=== PATIENT | male | born 1990 | race Two or more races ===

== ENCOUNTER 2021-01-16 11:01 | Outpatient (REF) | payer BC, SELFPAY | END 2021-01-16 11:02 | disposition home or self-care (01) | LOC: HO.LAB 11:01 | PROVIDERS: Visit Provider Internal Medicine | DX: Z20.822 Contact with and (suspected) exposure to COVID-19 (principal) | CPT/HCPCS: 36415; C9803; U0003; U0005 ==

== ENCOUNTER 2021-02-02 14:35 | Emergency (ER) | payer OTHER, SELFPAY ==
--- NOTE | ~2021-02-02 | XR_ITS ---
EXAMINATION: XR KNEE, LEFT CLINICAL INFORMATION: Knee pain from fall COMPARISON: None TECHNIQUE: Four views of the left knee. FINDINGS: There is no fracture or subluxation. Compartmental joint spaces are maintained. No joint effusion. The soft tissues are unremarkable. XR/XR knee LT 4V IMPRESSION: Normal left knee.
[2021-02-02 15:20] VITALS: RESP 16; TEMP 36.6; BMI 21.6
--- NOTE | 2021-02-02 16:28 | ED_ITS ---
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 He denies any other injury since. complaint: knee injury Onset (ago): day(s) Injury: Left: knee Type of Injury: blunt Place: work Severity: mild Severity scale (1-10): 3 Relieving factors: immobilization Exacerbating factors: palpation Context: fall and direct blow Other symptoms: none Related Data Previous Rx's Medication Instructions Recorded ibuprofen 800 mg PO Q8H PRN #14 tab 02/02/21 Allergies Allergy/AdvReac Type Severity Reaction Status Date / Time No Known Allergies Allergy Unverified 08/15/20 18:47 Review of Systems Review of Systems: Constitutional: No Weight loss, No Fever, No Chills, No Night Sweats, No Fatigue, No Malaise ENT/Mouth: No Hearing loss, No Ear Pain, No Nasal Congestion, No Sinus Pain, No Hoarseness, No sore throat, No Rhinorrhea, No Swallowing Difficulty Eyes: No Eye Pain, No Swelling, No Redness, No Foreign Body, No Discharge, No Vision Changes Cardiovascular: No Chest Pain, No SOB, No Dyspnea on Exertion, No Orthopnea, No Edema, No Palpitations Respiratory: No Cough, No Sputum, No Wheezing, No Dyspnea Gastrointestinal: No Nausea, No Vomiting, No Diarrhea, No Constipation, No abdominal Pain, No Hematochezia, No Melena Genitourinary: No Dysuria, No Urinary Frequency, No Hematuria, No Urinary Incontinence, No Urgency, No Flank Pain, No Urinary Flow Changes, No Hesitancy Musculoskeletal: No joint pain, No Myalgias, No Joint Swelling, left knee pain as noted per HPI Skin: No Skin Lesions, No rash Neuro: No Weakness, No Numbness, No Paresthesias, No Loss of Consciousness, No Dizziness, No Headache Psych: No Social Issues Heme/Lymph: No Bruising, No Bleeding,No Lymphadenopathy Endocrine: No Polyuria, No Polydipsia, No Temperature Intolerance Yes all other systems are reviewed and are negative [facility] Past Medical History Medical History (Updated 02/02/21 @ 16:38 by Mason Farnsworth NP) No known health problems Social History Social History Advance Directives: No Advance Directives Information Provided: No Physical Exam Vital Signs: Vital Signs: Last Vital Signs Temp 97.8 F 02/02/21 15:20 Resp 16 02/02/21 15:20 Body Mass Index 21.6 Reviewed Const: General: cooperative and healthy appearing; No acute distress or intoxicated appearing Nutritional Appearance: average body habitus Orientation/consciousness: patient oriented x3 HENMT: Head: Yes normal to inspection Ears: hearing grossly normal bilaterally Eyes: General: appearance normal, both eyes and all related structures Visual Hackett: normal visual hackett by confrontation Resp: Effort & Inspection: normal respiratory effort Cardio: Jugular venous distension: no JVD : General: Yes no CVA tenderness Back/Spine/Pelvis: Back: no CVA tenderness Skin: General skin exam: no rashes or lesions noted Neuro: General: patient oriented x3 Extrem: General: Yes normal to inspection Right upper extremity: normal to inspection Left upper extremity: normal to inspection Right lower extremity: normal to inspection and full ROM Left lower extremity: normal to inspection, full ROM and knee Details: tenderness Location: of the pre-patellar area and of the infrapatellar area Course Course Course Narrative: Strain versus contusion type injury to the left knee occurred at work. X-ray without acute osseous fracture Malcolm wrap, NSAID and follow-up with [facility] and [facility]. Discharge Plan Discharge Clinical Impression: Acute knee pain Qualifiers: Laterality: left Qualified Code(s): M25.562 - Pain in left knee Patient Disposition: Home, Self-Care Instructions: Knee Pain (ED) Additional Instructions: Rest, ice, elevate Ice wrap Ibuprofen for pain discomfort Follow-up as discussed with [facility] as well as orthopedic as needed Thank you Prescriptions: New ibuprofen 800 mg tablet 800 mg PO Q8H PRN (Reason: pain) Qty: 14 RF: 0 Referrals: Natalia Noble MD [Primary Care Provider] - 1 week Richard Anderson MD [Physician] - 1 week
== END 2021-02-02 16:49 | disposition home or self-care (01) ==
PROVIDERS: Emergency Provider Emergency Medicine; PCP Internal Medicine
DX: S89.92XA Unspecified injury of left lower leg, initial encounter (principal); M25.562 Pain in left knee; W01.0XXA Fall on same level from slipping, tripping and stumbling without subsequent striking against object, initial encounter; Y93.9 Activity, unspecified; Y92.9 Unspecified place or not applicable; Y99.0 Civilian activity done for income or pay; Z79.899 Other long term (current) drug therapy
CPT/HCPCS: 73564; 99283

== ENCOUNTER 2021-02-06 10:32 | Emergency (ER) | payer OTHER, SELFPAY ==
[2021-02-06 11:37] VITALS: BP 122/61; PULSE 77; RESP 16; TEMP 36.6; O2SAT 99; BMI 20.9
--- NOTE | 2021-02-06 12:10 | ED.LOWEXIN ---
HPI - Extremity Injury (Lower) General Chief Complaint: Extremity Injury, Lower Stated Complaint: leg knee inj Time Seen by Provider: 02/06/21 11:43 Source: patient Mode of arrival: ambulatory Limitations: language barrier (Panamanian-speaking) History of Present Illness HPI Narrative: 30-year-old male presenting to the ED with complaints of persistent left knee pain after he fell and tripped on something and felt like his knee twisted despite being seen here on 02/02/2021 and seen by [employer] part of his work yesterday reports he had 2 x-rays and they reported that there are no fractures and no other acute processes. They put him in a knee immobilizer and told him to follow-up with orthopedics. Patient reports he has a follow-up appointment tomorrow although Motrin is not helping with his pain. Denies any other symptoms complaints or concerns. complaint: knee injury Onset (ago): day(s) (On 02/02/2021) Place: work Severity: moderate Relieving factors: nothing Exacerbating factors: weight bearing, movement and palpation Context: fall Associated symptoms: swelling Other symptoms: none Treatments prior to arrival: other (Knee immobilizer) Related Data Previous Rx's Medication Instructions Recorded ibuprofen 800 mg PO Q8H PRN #14 tab 02/02/21 acetaminophen [Tylenol Extra 500 mg PO Q6H PRN #14 tab 02/06/21 Strength] ibuprofen 800 mg PO Q8H PRN #14 tab 02/06/21 oxycodone 5 mg PO BID PRN #14 tab 02/06/21 Allergies Allergy/AdvReac Type Severity Reaction Status Date / Time No Known Allergies Allergy Unverified 08/15/20 18:47 Review of Systems Review of Systems: Constitutional : No changes in activity, No lethargy, No recent prior head injury, No agitation, No increased fussiness ENT/Mouth : No Ear Pain, No Nasal discharge/drainage Eyes: No Eye Pain, No Swelling, No Redness, No Foreign Body, No Vision Changes Cardiovascular : No Chest Pain, No SOB Respiratory : No Cough Gastrointestinal : No Nausea, No Vomiting, No abdominal Pain Genitourinary : No Dysuria, No Urinary Frequency, No Urinary Incontinence, No Urgency, No Flank Pain Musculoskeletal : + joint pain, No neck stiffness, No back pain/injury Skin : No lacerations Neuro : No unsteady gait, No Paresthesias, No Loss of Consciousness, No altered mental status, No Headache Yes all other systems are reviewed and are negative [facility] Past Medical History Attestation statement: The following information was validated with the patient. Medical History No known health problems Social History Social History Advance Directives: No Advance Directives Information Provided: No Physical Exam Vital Signs: Vital Signs: Last Vital Signs Temp 98 F 02/06/21 11:37 Pulse 77 02/06/21 11:37 Resp 16 02/06/21 11:37 BP 122/61 02/06/21 11:37 Pulse Ox 99 02/06/21 11:37 Body Mass Index 20.9 vital signs have been reviewed as normal and appeared to be correct. Blood pressure normal. Heart rate normal. Respiration rate normal. Temperature normal. Oxygen saturation normal. Appearance: Alert. Oriented X3. No acute distress. Head: Normal external exam. Normocephalic. Atraumatic. Eyes: PERRLA. EOMI. Conjunctiva and sclera normal. Eyelids normal. ENT: Pharynx normal. Uvula midline. Moist mucous membranes. Neck: Normal inspection. Neck supple. FROM. No adenopathy. No meningeal signs. No neck mass noted. CVS: Normal heart rate and rhythm. Heart sound normal. Respiratory: No respiratory distress. Painless inspiration. Back: Full range of motion noted. Skin: Skin warm and dry. Normal skin color. Normal skin turgor. No rashes/lesions/lacerations noted. Extremities: To left knee patient has knee immobilizer in place we remove the knee immobilizer and patient has mild soft tissue swelling to the anterior medial aspect of the knee and tenderness to palpation to the anterior medial aspect of the knee and lateral lower aspect of the knee. Patient does have full range of motion no obvious laxity noted. No obvious deformities noted. No lower extremity edema. Otherwise all other Extremities exhibit normal range of motion and nontender. Neuro: Oriented X 3. No motor deficit. No sensory deficit. Reflexes normal. Course Course Course Narrative: 30-year-old male presenting to the ED after he had a work related injury a few days ago with persistent pain had 2 x-rays which were negative for any acute processes has to follow up with Orthopedics. Knee immobilizer in place. Requesting for something stronger for pain other than Motrin. Will DC home with some pain meds and crutches and instructions to follow up with [facility] and orthopedics as scheduled. Patient understands agrees with this plan. MDM - Extremity Injury (Lower) Medical Records Attestation: I reviewed the patient's medical records. Discharge Plan Discharge Clinical Impression: Left knee sprain Patient Disposition: Home, Self-Care Instructions: Knee Sprain (ED), Crutch Instructions (ED), Knee Immobilizer (ED) Prescriptions: New ibuprofen 800 mg tablet 800 mg PO Q8H PRN (Reason: pain) Qty: 14 RF: 0 acetaminophen [Tylenol Extra Strength] 500 mg tablet 500 mg PO Q6H PRN (Reason: pain) Qty: 14 RF: 0 oxycodone 5 mg tablet 5 mg PO BID PRN (Reason: pain) Qty: 14 RF: 0 No Action ibuprofen 800 mg tablet 800 mg PO Q8H PRN (Reason: pain) Qty: 14 RF: 0 Referrals: Richard Anderson MD [Physician] - 2 days (Call this week to make a follow-up appointment within the next 1-2 weeks) Stand Alone Forms: Work/School Release Print Language: Panamanian
--- NOTE | 2021-02-06 12:48 | PC.NURSE ---
PT HAS BRACE FROM HOME ON, NEUROVASC INTACT. PT STATES DID NOT WANT CRUTCHES. STATES I CAN WALK. DECLINED CRUTCHES.
== END 2021-02-06 12:52 | disposition home or self-care (01) ==
PROVIDERS: Emergency Provider Emergency Medicine Emergency Medical Services; PCP Internal Medicine
DX: S89.92XA Unspecified injury of left lower leg, initial encounter (principal); M79.605 Pain in left leg; X50.1XXA Overexertion from prolonged static or awkward postures, initial encounter; Y93.01 Activity, walking, marching and hiking; Y92.9 Unspecified place or not applicable; Y99.9 Unspecified external cause status; Z79.899 Other long term (current) drug therapy
CPT/HCPCS: 99283

== ENCOUNTER 2021-03-03 11:51 | Emergency (ER) | payer MEDICAID, SELFPAY ==
[2021-03-03 12:09] VITALS: BP 118/73; PULSE 88; RESP 18; TEMP 37; O2SAT 98; BMI 21.2
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
--- NOTE | 2021-03-03 12:51 | PC.NURSE ---
PT AMBULATORY INTO [facility] 4. PT AWAKE, ALERT AND ORIENTED X 3. SKIN WARM AND DRY. RESP UNLABORED. DENIES N/V. NEUROS INTACT. MOVING ALL EXTREMITIES WITHOUT DIFFICULTY. NO ACUTE DISTRESS, SITTING UP IN CHAIR. EVALUATED BY FATOU GARRETT. AWARE TO RETURN TO ED IF SYMPTOMS WORSEN. PLAN IS FOR DC HOME AND PT IS AGREEABLE.
== END 2021-03-03 12:54 | disposition home or self-care (01) ==
PROVIDERS: Emergency Provider Emergency Medicine; PCP Internal Medicine
DX: S39.012A Strain of muscle, fascia and tendon of lower back, initial encounter (principal); V43.52XA Car driver injured in collision with other type car in traffic accident, initial encounter; Y93.9 Activity, unspecified; Y92.410 Unspecified street and highway as the place of occurrence of the external cause; Y99.9 Unspecified external cause status; Z79.899 Other long term (current) drug therapy
CPT/HCPCS: 99283

== ENCOUNTER 2021-06-16 15:14 | Emergency (ER) | payer MEDICAID, SELFPAY ==
[2021-06-16 15:25] VITALS: BP 124/63; PULSE 86; RESP 19; TEMP 37.2; O2SAT 100; BMI 22.0
--- NOTE | 2021-06-16 16:29 | ED.ANIMALBIT ---
HPI - Animal Bite General Chief Complaint: Skin/Abscess/Foreign Body Stated Complaint: Cat scratch Time Seen by Provider: 06/16/21 16:21 Source: patient Mode of arrival: ambulatory Limitations: no limitations History of Present Illness HPI narrative: 30-year-old male presenting to the ED with complaints of a cat scratch to his right forearm that occurred 2 days ago. He reports that the cat is not up-to-date on immunizations due to he just adopted a cat from [place] a month ago and the cat is approximately 1-month-old. He is not believe that the cat has rabies. He is not up-to-date on his tetanus. Denies any other symptoms complaints or concerns or injuries at this time. complaint: other (Cat scratch) Onset (ago): day(s) (2 days ago) Animal: cat Description of animal: household pet Mechanism: scratch Location - Extremities: right: forearm Pain description: constant Associated symptoms: erythema and discharge from wound (Clear discharge per patient) Treatments prior to arrival: irrigation and antibiotic ointment Related Data Patient tetanus UTD: No Previous Rx's Medication Instructions Recorded ibuprofen 800 mg PO Q8H PRN #14 tab 02/02/21 acetaminophen [Tylenol Extra 500 mg PO Q6H PRN #14 tab 02/06/21 Strength] ibuprofen 800 mg PO Q8H PRN #14 tab 02/06/21 oxycodone 5 mg PO BID PRN #14 tab 02/06/21 ibuprofen 800 mg PO Q8H PRN #30 tab 03/03/21 nitrofurantoin monohyd/m-cryst 100 mg PO BEDTIME 14 Days #14 cap 03/03/21 [Macrobid] acetaminophen [Tylenol Extra 1,000 mg PO QID PRN #14 tab 06/16/21 Strength] amoxicillin-pot clavulanate 1 tab PO BID 14 Days #28 tab 06/16/21 [Augmentin] ibuprofen 800 mg PO Q8H PRN #14 tab 06/16/21 oxycodone 5 mg PO BID PRN #10 tab 06/16/21 Allergies Allergy/AdvReac Type Severity Reaction Status Date / Time No Known Allergies Allergy Verified 03/03/21 12:09 Review of Systems Review of Systems: Constitutional : No Fever, No Chills, Cardiovascular : No Chest Pain, No SOB Respiratory : No Dyspnea Gastrointestinal : No abdominal pain Musculoskeletal : No Joint Swelling Skin : positive skin wound with surrounding erythema, no laceration, No Foreign bodies, No rash Neuro : No Weakness, No Numbness/tingling Psych : No SI/HI/thoughts of self injury Yes all other systems are reviewed and are negative [facility] Past Medical History Attestation statement: The following information was validated with the patient. Medical History No known health problems Social History Social History Advance Directives: No Advance Directives Information Provided: No Physical Exam Vital Signs: Vital Signs: Last Vital Signs Temp 99 F 06/16/21 15:25 Pulse 86 06/16/21 15:25 Resp 19 06/16/21 15:25 BP 124/63 06/16/21 15:25 Pulse Ox 100 06/16/21 15:25 Body Mass Index 22.0 vital signs have been reviewed as normal and appeared to be correct. Blood pressure normal. Heart rate normal. Respiration rate normal. Temperature normal. Oxygen saturation normal. Appearance: Alert. Oriented X3. No acute distress. Head: Normal external exam. Normocephalic. Atraumatic. Eyes: PERRLA. EOMI. Conjunctiva and sclera normal. Eyelids normal. ENT: Pharynx normal. Uvula midline. Moist mucous membranes. Neck: Normal inspection. Neck supple. FROM. No adenopathy. No meningeal signs. CVS: Normal heart rate and rhythm. Pulses normal throughout. Respiratory: No respiratory distress. Painless inspiration. Back: Full range of motion noted. No rashes/lesion/induration/fluctuance or signs of infection noted. Skin: Skin warm and dry. Normal skin color. Normal skin turgor. To right forearm patient has wound with surrounding erythema no drainage noted on my exam or foreign bodies or streaking. No rashes/lacerations noted. Extremities: Extremities exhibit normal range of motion. Extremities nontender. Neuro: Oriented X 3. No motor deficit. No sensory deficit. Reflexes normal. Normal steady gait. No focal neuro deficits noted. Vascular: + radial pulses. Normal cap refill. Course Course Course Narrative: 30-year-old male presenting to the ED with cat scratch to right forearm sustained 2 days ago on exam patient has wound no foreign bodies or streaking noted. Patient has full range of motion of all joints. Not consistent with tenosynovitis. Will DC home with antibiotics and update the patient's tetanus and DC with instructions to return in 24-48 hours if symptoms worsen and to follow up with primary care provider. Patient understands agrees with this plan. MDM - Animal Bite Medical Records Attestation: I reviewed the patient's medical records. Discharge Plan Discharge Clinical Impression: Cellulitis, Cat scratch Patient Disposition: Home, Self-Care Instructions: Cellulitis (ED), Cat Scratch Disease (ED) Additional Instructions: Return in 24-48 hours the symptoms worsen. Prescriptions: New ibuprofen 800 mg tablet 800 mg PO Q8H PRN (Reason: pain) Qty: 14 RF: 0 acetaminophen [Tylenol Extra Strength] 500 mg tablet 1,000 mg PO QID PRN (Reason: fever or pain) Qty: 14 RF: 0 amoxicillin-pot clavulanate [Augmentin] 875-125 mg tablet 1 tab PO BID 14 Days Qty: 28 RF: 0 oxycodone 5 mg tablet 5 mg PO BID PRN (Reason: pain) Qty: 10 RF: 0 No Action ibuprofen 800 mg tablet 800 mg PO Q8H PRN (Reason: pain) Qty: 14 RF: 0 ibuprofen 800 mg tablet 800 mg PO Q8H PRN (Reason: pain) Qty: 14 RF: 0 acetaminophen [Tylenol Extra Strength] 500 mg tablet 500 mg PO Q6H PRN (Reason: pain) Qty: 14 RF: 0 oxycodone 5 mg tablet 5 mg PO BID PRN (Reason: pain) Qty: 14 RF: 0 nitrofurantoin monohyd/m-cryst [Macrobid] 100 mg capsule 100 mg PO BEDTIME 14 Days Qty: 14 RF: 0 ibuprofen 800 mg tablet 800 mg PO Q8H PRN (Reason: pain) Qty: 30 RF: 0 Referrals: Physician,None [Primary Care Provider] - 2 days (your pcp) Print Language: Congolese
== END 2021-06-16 16:41 | disposition home or self-care (01) ==
PROVIDERS: Emergency Provider Emergency Medicine
DX: S50.811A Abrasion of right forearm, initial encounter (principal); L03.113 Cellulitis of right upper limb; W55.03XA Scratched by cat, initial encounter; Y93.9 Activity, unspecified; Y92.9 Unspecified place or not applicable; Y99.9 Unspecified external cause status
CPT/HCPCS: 99283

== ENCOUNTER 2021-06-18 10:32 | Emergency (ER) | payer MEDICAID, SELFPAY ==
[2021-06-18 11:26] VITALS: BP 112/65; PULSE 72; RESP 16; TEMP 36.7; O2SAT 99; BMI 22.0
--- NOTE | 2021-06-18 12:25 | ED_ITS ---
HPI - Skin/Abscess/Foreign Bdy General Chief complaint: Skin/Abscess/Foreign Body Stated complaint: abscess right arm Time Seen by Provider: 06/18/21 10:38 Related Data Previous Rx's Medication Instructions Recorded ibuprofen 800 mg PO Q8H PRN #14 tab 02/02/21 acetaminophen [Tylenol Extra 500 mg PO Q6H PRN #14 tab 02/06/21 Strength] ibuprofen 800 mg PO Q8H PRN #14 tab 02/06/21 oxycodone 5 mg PO BID PRN #14 tab 02/06/21 ibuprofen 800 mg PO Q8H PRN #30 tab 03/03/21 nitrofurantoin monohyd/m-cryst 100 mg PO BEDTIME 14 Days #14 cap 03/03/21 [Macrobid] acetaminophen [Tylenol Extra 1,000 mg PO QID PRN #14 tab 06/16/21 Strength] amoxicillin-pot clavulanate 1 tab PO BID 14 Days #28 tab 06/16/21 [Augmentin] ibuprofen 800 mg PO Q8H PRN #14 tab 06/16/21 oxycodone 5 mg PO BID PRN #10 tab 06/16/21 cephalexin 500 mg PO BID 7 Days #14 cap 06/18/21 cephalexin 500 mg PO QID 7 Days #28 cap 06/18/21 doxycycline hyclate 100 mg PO BID #14 cap 06/18/21 ibuprofen 600 mg PO Q8H PRN #20 tab 06/18/21 tramadol 50 mg PO BID PRN #20 tab 06/18/21 Allergies Allergy/AdvReac Type Severity Reaction Status Date / Time No Known Allergies Allergy Verified 06/18/21 11:32 Review of Systems Review of Systems: Constitutional : No Weight loss, No Fever, No Chills, No Night Sweats, No Fatigue, No Malaise ENT/Mouth : No Hearing loss, No Ear Pain, No Nasal Congestion, No Sinus Pain, No Hoarseness, No sore throat, No Rhinorrhea, No Swallowing Difficulty Eyes: No Eye Pain, No Swelling, No Redness, No Foreign Body, No Discharge, No Vision Changes Cardiovascular : No Chest Pain, No SOB, No Dyspnea on Exertion, No Orthopnea, No Edema, No Palpitations Respiratory : No Cough, No Sputum, No Wheezing, No Smoke Exposure, No Dyspnea Gastrointestinal : No Nausea, No Vomiting, No Diarrhea, No Constipation, No abdominal Pain, No Hematochezia, No Melena Genitourinary : no irregular bleeding, No Dysuria, No Urinary Frequency, No Hematuria, No Urinary Incontinence, No Urgency, No Flank Pain, No Urinary Flow Changes, No Hesitancy Musculoskeletal : No joint pain, No Myalgias, No Joint Swelling Skin : No Skin Lesions, no rash, right arm abscess after cat scratch Neuro : No Weakness, No Numbness, No Paresthesias, No Loss of Consciousness, No Dizziness, No Headache Psych : No Anxiety/Panic, No Depression, No SI/HI/AH/VH, No Social Issues, Heme/Lymph: No Bruising, No Bleeding,No Lymphadenopathy Endocrine : No Polyuria, No Polydipsia, No Temperature Intolerance Yes all other systems are reviewed and are negative PMFSH Past Medical History Medical History No known health problems Social History Social History Advance Directives: No Advance Directives Information Provided: Yes Physical Exam Vital Signs: Vital Signs: Last Vital Signs Temp 98.0 F 06/18/21 11:26 Pulse 72 06/18/21 11:26 Resp 16 06/18/21 11:26 BP 112/65 06/18/21 11:26 Pulse Ox 99 06/18/21 11:26 Body Mass Index 22.0 Const: General: healthy appearing, no acute distress and well developed Nutritional Appearance: well nourished Orientation/consciousness: patient oriented x3 Neck: Neck: Yes normal visual inspection, Yes full ROM and Yes trachea midline Thyroid: Thyroid normal Resp: Auscultation: clear to auscultation bilaterally Cardio: Rate: regular rate Rhythm: regular rhythm GI: Inspection: Yes normal to inspection and No distended Palpation (GI): No hepatosplenomegaly present Auscultation: normal bowel sounds Skin: Wounds: wounds noted ( right arm abscess) Neuro: General: patient oriented x3 Course Course Course Narrative: 30-year-old male presenting to ED with right forearm abscess. Patient reports that he was seen here on the , was sent home with antibiotics and pain medication. He was put on Augmentin. Today area does not look larger however looks more inflamed and there is small amount of pus benjamin ining from the center. we will do I&D, change his antibiotic to doxycycline and Keflex. Reevaluation(s) Reevaluation #1: Abscess drainage performed with the help of Farhana ARAUJO. Cyst that was imbedded in the bed of the abscess removed. Area packed with iodoform packing. Patient was instructed to come back in 4 days for wound check. He was also instructed to come back to emergency department if he will experience increase in pain, increase in swelling, foul order, fever or chills. He verbalizes understanding and is agreeable to plan of care. He was given the opportunity to ask questions and all questions answered. Procedures Abscess I/D Site: upper extremity Side (if applicable): right Local Anesthetic: lidocaine 2% Technique: incised with blade ( #11 Blade 1 cm ) Amount of fluid expressed (mL): 2 Sent for culture/gram staining?: No Irrigation: Yes Packing used?: iodoform Discharge Plan Discharge Clinical Impression: Cellulitis Qualifiers: Site of cellulitis: extremity Site of cellulitis of extremity: upper extremity Laterality: right Qualified Code(s): L03.113 - Cellulitis of right upper limb Patient Disposition: Home, Self-Care Instructions: Cellulitis (ED), Abscess (ED) Additional Instructions: Usted fue visto aqu? hoy por jamey infecci?n en la piel. Akhtar absceso fue drenado. Empezamos a gonzalo un antibi?sarah diferente. Onward el nuevo antibi?sarah sunni los pr?ximos 7 d?as. tome cefalexina 4 veces al d?a y doxiciclina dos veces al d?a sunni los pr?ximos 7 d?as. No retire el embalaje sunni los pr?ximos 3-4 d?as. Regrese al departamento de emergencias para que le revisen las heridas en 4 d?as. Regrese al departamento de emergencias si jessica s?ntomas empeoran o si experimenta alg?n s?ntoma adicional preocupante. Prescriptions: New doxycycline hyclate 100 mg capsule 100 mg PO BID Qty: 14 RF: 0 cephalexin 500 mg capsule 500 mg PO BID 7 Days Qty: 14 RF: 0 ibuprofen 600 mg tablet 600 mg PO Q8H PRN (Reason: pain) Qty: 20 RF: 0 cephalexin 500 mg capsule 500 mg PO QID 7 Days Qty: 28 RF: 0 tramadol 50 mg tablet 50 mg PO BID PRN (Reason: pain) Qty: 20 RF: 0 No Action ibuprofen 800 mg tablet 800 mg PO Q8H PRN (Reason: pain) Qty: 14 RF: 0 acetaminophen [Tylenol Extra Strength] 500 mg tablet 1,000 mg PO QID PRN (Reason: fever or pain) Qty: 14 RF: 0 amoxicillin-pot clavulanate [Augmentin] 875-125 mg tablet 1 tab PO BID 14 Days Qty: 28 RF: 0 oxycodone 5 mg tablet 5 mg PO BID PRN (Reason: pain) Qty: 10 RF: 0 ibuprofen 800 mg tablet 800 mg PO Q8H PRN (Reason: pain) Qty: 14 RF: 0 ibuprofen 800 mg tablet 800 mg PO Q8H PRN (Reason: pain) Qty: 14 RF: 0 acetaminophen [Tylenol Extra Strength] 500 mg tablet 500 mg PO Q6H PRN (Reason: pain) Qty: 14 RF: 0 oxycodone 5 mg tablet 5 mg PO BID PRN (Reason: pain) Qty: 14 RF: 0 nitrofurantoin monohyd/m-cryst [Macrobid] 100 mg capsule 100 mg PO BEDTIME 14 Days Qty: 14 RF: 0 ibuprofen 800 mg tablet 800 mg PO Q8H PRN (Reason: pain) Qty: 30 RF: 0 Interventions: ED Discharge Assessment Last Done: 06/18/21 14:38 Discharge Date/Time: 06/18/21 14:40
[2021-06-18] MEDS: Lidocaine HCl 2 % MPF 5 ML VIAL INFILTRATI ×2 (13:25→13:26)
[2021-06-18] MEDS: cephALEXin 500 MG CAPSULE PO (13:25)
[2021-06-18] MEDS: Ibuprofen 600 MG TABLET PO (13:26)
[2021-06-18] MEDS: traMADoL HCL 50 MG TABLET PO (14:34)
== END 2021-06-18 14:40 | disposition home or self-care (01) ==
PROVIDERS: Emergency Provider Emergency Medicine; PCP Internal Medicine
DX: L02.413 Cutaneous abscess of right upper limb (principal)
CPT/HCPCS: 10061; 99283; 99284

== ENCOUNTER 2021-08-13 14:49 | Outpatient (REF) | payer OTHER, SELFPAY | END 2021-08-13 14:50 | disposition home or self-care (01) | LOC: HO.LAB 14:49 | PROVIDERS: Visit Provider Internal Medicine | DX: Z20.822 Contact with and (suspected) exposure to COVID-19 (principal) | CPT/HCPCS: C9803; U0003; U0005 ==

== ENCOUNTER 2021-08-22 14:56 | Outpatient (REF) | payer OTHER, SELFPAY ==
[2021-08-22 15:58] LABS: COVID-19 Test Negative (Negative)
== END 2021-08-22 14:57 | disposition home or self-care (01) ==
LOC: HO.LAB 14:56
PROVIDERS: Visit Provider Internal Medicine
DX: Z20.822 Contact with and (suspected) exposure to COVID-19 (principal)
CPT/HCPCS: 36415; 87635; C9803

== ENCOUNTER 2021-09-01 18:15 | Emergency (ER) | payer OTHER, SELFPAY ==
[2021-09-01 20:03] VITALS: BP 115/62; PULSE 77; RESP 16; TEMP 36.2; O2SAT 100; BMI 23.6
[2021-09-01 20:13] LABS: COVID-19 Test Negative (Negative); IDNOW Serial# 9DD0AD1C
--- NOTE | 2021-09-01 20:23 | ED.GENADULT ---
HPI - General Adult General Chief complaint: Upper Respiratory Symptoms Stated complaint: flu like symptoms Time Seen by Provider: 09/01/21 20:11 Source: patient Mode of arrival: ambulatory Limitations: no limitations History of Present Illness HPI narrative: Patient comes emergency room complaining of diffuse body aches, occasional cough, chest pain only with cough, no shortness of breath. 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 Otherwise patient has no complaints. Related Data Previous Rx's Medication Instructions Recorded ibuprofen 800 mg tablet 800 mg PO Q8H PRN #14 tab 02/02/21 acetaminophen 500 mg tablet 500 mg PO Q6H PRN #14 tab 02/06/21 (Tylenol Extra Strength) ibuprofen 800 mg tablet 800 mg PO Q8H PRN #14 tab 02/06/21 oxycodone 5 mg tablet 5 mg PO BID PRN #14 tab 02/06/21 ibuprofen 800 mg tablet 800 mg PO Q8H PRN #30 tab 03/03/21 nitrofurantoin 100 mg PO BEDTIME 14 Days #14 cap 03/03/21 monohydrate/macrocrystals 100 mg capsule (Macrobid) acetaminophen 500 mg tablet 1,000 mg PO QID PRN #14 tab 06/16/21 (Tylenol Extra Strength) amoxicillin 875 mg-potassium 1 tab PO BID 14 Days #28 tab 06/16/21 clavulanate 125 mg tablet (Augmentin) ibuprofen 800 mg tablet 800 mg PO Q8H PRN #14 tab 06/16/21 oxycodone 5 mg tablet 5 mg PO BID PRN #10 tab 06/16/21 cephalexin 500 mg capsule 500 mg PO BID 7 Days #14 cap 06/18/21 cephalexin 500 mg capsule 500 mg PO QID 7 Days #28 cap 06/18/21 doxycycline hyclate 100 mg capsule 100 mg PO BID #14 cap 06/18/21 ibuprofen 600 mg tablet 600 mg PO Q8H PRN #20 tab 06/18/21 tramadol 50 mg tablet 50 mg PO BID PRN #20 tab 06/18/21 Allergies Allergy/AdvReac Type Severity Reaction Status Date / Time No Known Allergies Allergy Verified 06/18/21 11:32 Review of Systems Review of Systems: Constitutional : No Weight loss, No Fever, No Chills no night sweats, complaining diffuse body aches ENT/Mouth : No Hearing loss, No Ear Pain, No Nasal Congestion, No Sinus Pain, No Hoarseness, No sore throat, No Rhinorrhea, No Swallowing Difficulty Eyes: No Eye Pain, No Swelling, No Redness, No Foreign Body, No Discharge, No Vision Changes Cardiovascular : No Chest Pain, No SOB, No Dyspnea on Exertion, No Orthopnea, No Edema, No Palpitations Respiratory : Complaining of mild dry cough, No Sputum, No Wheezing, No Smoke Exposure, No Dyspnea Gastrointestinal : No Nausea, No Vomiting, No Diarrhea, No Constipation, No abdominal Pain, No Hematochezia, No Melena Genitourinary : no irregular bleeding, No Dysuria, No Urinary Frequency, No Hematuria, No Urinary Incontinence, No Urgency, No Flank Pain, No Urinary Flow Changes, No Hesitancy Musculoskeletal : No joint pain, No Myalgias, No Joint Swelling Skin : No Skin Lesions, No rash Neuro : No Weakness, No Numbness, No Paresthesias, No Loss of Consciousness, No Dizziness, No Headache Psych : No Anxiety/Panic, No Depression, No SI/HI/AH/VH, No Social Issues, Heme/Lymph: No Bruising, No Bleeding,No Lymphadenopathy Endocrine : No Polyuria, No Polydipsia, No Temperature Intolerance PMFSH Past Medical History Medical History No known health problems Social History Social History Advance Directives: No Advance Directives Information Provided: No Physical Exam Vital Signs: Vital Signs: Last Vital Signs Temp 97.2 F 09/01/21 20:03 Pulse 77 09/01/21 20:03 Resp 16 09/01/21 20:03 BP 115/62 09/01/21 20:03 Pulse Ox 100 09/01/21 20:03 Body Mass Index 23.6 Const: Other: Appearance: Alert. Oriented X3. No acute distress. Eyes: Pupils equal, round and reactive to light. ENT: Pharynx normal. Neck: Normal inspection. Neck supple. No lymph nodes noted. No crepitus CVS: Normal heart rate and rhythm. Pulses normal. Normal S1 and S2 Respiratory: No respiratory distress. Breath sounds normal. No Wheezing. No rales Abdomen: Soft and nontender. No rigidity. No distention. good BS x4 Skin: Skin warm and dry. Normal skin color. Normal skin turgor. Extremities: No lower extremity edema. No lower extremity edema. No Lacerations. No Rash Neuro: Oriented X 3. No motor deficit. No sensory deficit. Moving all extermities. No slurred speech. Course Course Course Narrative: I discussed the labs with the patient, COVID negative. Patient may have a viral syndrome. Medical Decision Making Lab Data Labs: Lab Results 09/01/21 Range/Units 19:43 COVID-19 (OBDULIO) Negative (Negative) COVID-19 Clin Com See Note Discharge Plan Discharge Clinical Impression: Acute viral syndrome Patient Disposition: Home, Self-Care Instructions: Viral Syndrome (ED) Additional Instructions: Please follow-up with your primary care physician tomorrow. If you have any worsening or new symptoms, please return to the emergency room or call 911 Prescriptions: No Action ibuprofen 800 mg tablet 800 mg PO Q8H PRN (Reason: pain) Qty: 14 RF: 0 acetaminophen [Tylenol Extra Strength] 500 mg tablet 1,000 mg PO QID PRN (Reason: fever or pain) Qty: 14 RF: 0 amoxicillin-pot clavulanate [Augmentin] 875-125 mg tablet 1 tab PO BID 14 Days Qty: 28 RF: 0 oxycodone 5 mg tablet 5 mg PO BID PRN (Reason: pain) Qty: 10 RF: 0 ibuprofen 800 mg tablet 800 mg PO Q8H PRN (Reason: pain) Qty: 14 RF: 0 ibuprofen 800 mg tablet 800 mg PO Q8H PRN (Reason: pain) Qty: 14 RF: 0 acetaminophen [Tylenol Extra Strength] 500 mg tablet 500 mg PO Q6H PRN (Reason: pain) Qty: 14 RF: 0 oxycodone 5 mg tablet 5 mg PO BID PRN (Reason: pain) Qty: 14 RF: 0 nitrofurantoin monohyd/m-cryst [Macrobid] 100 mg capsule 100 mg PO BEDTIME 14 Days Qty: 14 RF: 0 ibuprofen 800 mg tablet 800 mg PO Q8H PRN (Reason: pain) Qty: 30 RF: 0 doxycycline hyclate 100 mg capsule 100 mg PO BID Qty: 14 RF: 0 cephalexin 500 mg capsule 500 mg PO BID 7 Days Qty: 14 RF: 0 ibuprofen 600 mg tablet 600 mg PO Q8H PRN (Reason: pain) Qty: 20 RF: 0 cephalexin 500 mg capsule 500 mg PO QID 7 Days Qty: 28 RF: 0 tramadol 50 mg tablet 50 mg PO BID PRN (Reason: pain) Qty: 20 RF: 0 Stand Alone Forms: Work/School Release
== END 2021-09-01 20:46 | disposition home or self-care (01) ==
PROVIDERS: Emergency Provider Emergency Medicine; PCP Internal Medicine
DX: B34.9 Viral infection, unspecified (principal); R05.9 Cough, unspecified; M79.10 Myalgia, unspecified site; R07.2 Precordial pain; Z20.822 Contact with and (suspected) exposure to COVID-19; Z79.899 Other long term (current) drug therapy
CPT/HCPCS: 36415; 87635; 99283; 99284

== ENCOUNTER 2021-11-10 14:08 | Outpatient (REF) | payer OTHER, SELFPAY ==
[2021-11-10 15:15] LABS: COVID-19 Test Negative (Negative)
== END 2021-11-10 14:09 | disposition home or self-care (01) ==
LOC: HO.LAB 14:08
PROVIDERS: Visit Provider Internal Medicine
DX: Z20.822 Contact with and (suspected) exposure to COVID-19 (principal)
CPT/HCPCS: 36415; 87635; C9803

== ENCOUNTER 2021-11-13 13:40 | Emergency (ER) | payer OTHER, SELFPAY ==
[2021-11-13 14:25] VITALS: BP 138/88; PULSE 87; RESP 18; TEMP 37; O2SAT 99; BMI 21.4
[2021-11-13 16:36] LABS: Influenza A PCR NEGATIVE (Negative); Influenza B PCR NEGATIVE (Negative); Resp Syncy Virus RNA Qual PCR NEGATIVE (Negative); SARS COV2 PCR INHOUSE NEGATIVE (Negative)
[2021-11-13 17:45] VITALS: BP 123/88; PULSE 78; RESP 16; TEMP 36.8; O2SAT 100
--- NOTE | 2021-11-13 17:47 | ED_ITS ---
HPI - URI/Sore Throat General Chief Complaint: General Medical Stated Complaint: cough flu Time Seen by Provider: 11/13/21 14:42 Source: patient Mode of arrival: ambulatory Limitations: no limitations History of Present Illness MD elicited complaint: cough Onset (ago): day(s) (Few days worse today) Consistency: constant and progressively worsening Severity: mild Description of mucous: clear, watery and yellow Able to tolerate fluids by mouth: Yes Exacerbating factors: nothing Relieving factors: nothing Associated symptoms: denies other symptoms Treatments prior to arrival: none Related Data Previous Rx's Medication Instructions Recorded ibuprofen 800 mg tablet 800 mg PO Q8H PRN #14 tab 02/02/21 acetaminophen 500 mg tablet 500 mg PO Q6H PRN #14 tab 02/06/21 (Tylenol Extra Strength) ibuprofen 800 mg tablet 800 mg PO Q8H PRN #14 tab 02/06/21 oxycodone 5 mg tablet 5 mg PO BID PRN #14 tab 02/06/21 ibuprofen 800 mg tablet 800 mg PO Q8H PRN #30 tab 03/03/21 nitrofurantoin 100 mg PO BEDTIME 14 Days #14 cap 03/03/21 monohydrate/macrocrystals 100 mg capsule (Macrobid) acetaminophen 500 mg tablet 1,000 mg PO QID PRN #14 tab 06/16/21 (Tylenol Extra Strength) amoxicillin 875 mg-potassium 1 tab PO BID 14 Days #28 tab 06/16/21 clavulanate 125 mg tablet (Augmentin) ibuprofen 800 mg tablet 800 mg PO Q8H PRN #14 tab 06/16/21 oxycodone 5 mg tablet 5 mg PO BID PRN #10 tab 06/16/21 cephalexin 500 mg capsule 500 mg PO BID 7 Days #14 cap 06/18/21 cephalexin 500 mg capsule 500 mg PO QID 7 Days #28 cap 06/18/21 doxycycline hyclate 100 mg capsule 100 mg PO BID #14 cap 06/18/21 ibuprofen 600 mg tablet 600 mg PO Q8H PRN #20 tab 06/18/21 tramadol 50 mg tablet 50 mg PO BID PRN #20 tab 06/18/21 azithromycin 250 mg tablet See Rx Instructions .ROUTE 11/13/21 .COMPLEX #6 tab codeine 10 mg-guaifenesin 100 mg/5 5 ml PO Q6H PRN #120 ml 11/13/21 mL oral liquid (Guaifenesin AC) Allergies Allergy/AdvReac Type Severity Reaction Status Date / Time No Known Allergies Allergy Verified 06/18/21 11:32 Review of Systems Review of Systems: Constitutional : No Weight loss, No Fever, No Chills, No Night Sweats, No Fatigue, No Malaise ENT/Mouth : No Hearing loss, No Ear Pain, No Nasal Congestion, No Sinus Pain, No Hoarseness, No sore throat, No Rhinorrhea, No Swallowing Difficulty Eyes: No Eye Pain, No Swelling, No Redness, No Foreign Body, No Discharge, No Vision Changes Cardiovascular : No Chest Pain, No SOB, No Dyspnea on Exertion, No Orthopnea, No Edema, No Palpitations Respiratory : + Cough, + Sputum, No Wheezing, No Smoke Exposure, No Dyspnea Gastrointestinal : No Nausea, No Vomiting, No Diarrhea, No Constipation, No abdominal Pain, No Hematochezia, No Melena Genitourinary : no irregular bleeding, No Dysuria, No Urinary Frequency, No Hematuria, No Urinary Incontinence, No Urgency, No Flank Pain, No Urinary Flow Changes, No Hesitancy Musculoskeletal : No joint pain, No Myalgias, No Joint Swelling Skin : No Skin Lesions, No rash Neuro : No Weakness, No Numbness, No Paresthesias, No Loss of Consciousness, No Dizziness, No Headache Psych : No Anxiety/Panic, No Depression, No SI/HI/AH/VH, No Social Issues, Heme/Lymph: No Bruising, No Bleeding,No Lymphadenopathy Endocrine : No Polyuria, No Polydipsia, No Temperature Intolerance Yes all other systems are reviewed and are negative [facility] Past Medical History Attestation statement: The following information was validated with the patient. Medical History No known health problems Social History Social History Advance Directives: No Advance Directives Information Provided: Yes Physical Exam Vital Signs: Vital Signs: Last Vital Signs Temp 98.6 F 11/13/21 14:25 Pulse 87 11/13/21 14:25 Resp 18 11/13/21 14:25 BP 138/88 11/13/21 14:25 Pulse Ox 99 11/13/21 14:25 BMI result Body Mass Index 21.4 vital signs have been reviewed as normal and appeared to be correct. Blood pressure normal. Heart rate normal. Respiration rate normal. Temperature normal. Oxygen saturation normal. Appearance: Alert. Oriented X3. No acute distress. Head: Normal external exam. Normocephalic. Atraumatic. Eyes: PERRLA. EOMI. Conjunctiva and sclera normal. Eyelids normal. ENT: EAC normal. TM's Normal. Pharynx normal. Uvula midline. Moist mucous membranes. No trismus noted. No drooling noted. No muffled voice noted. Neck: Normal inspection. Neck supple. FROM. No adenopathy. Thyroid Normal. No meningeal signs. No neck mass noted. CVS: Normal heart rate and rhythm. Heart sound normal. Pulses normal throughout. No murmurs/rales/gallops. Respiratory: No respiratory distress. Painless inspiration. Breath sounds normal. No wheezes/rales/rhonchi noted. Chest nontender. No accessory muscle usage noted or decreased air movement noted. Abdomen: Soft and nontender. Bowel sounds normal in all 4 quadrants. No distention noted. No organomegaly noted. No visible injury noted. Back: Full range of motion noted. No rashes/lesion/induration/fluctuance or signs of infection noted. Skin: Skin warm and dry. Normal skin color. Normal skin turgor. No rashes/lesions/lacerations noted. Extremities: No lower extremity edema. Extremities exhibit normal range of motion. Extremities nontender. Neuro: Oriented X 3. No motor deficit. No sensory deficit. Reflexes normal. Normal steady gait. No focal neuro deficits noted. Vascular: + radial pulses Normal cap refill. No cyanosis noted to upper extremity nails Course Course Course Narrative: 30-year-old male with URI symptoms for the past few days worse today. Denies recent travel or sick contacts. Denies exposure to COVID that he is aware of. Denies being vaccinated to COVID. Denies any other symptoms complaints or concerns at this time. Patient negative for COVID/RSV/FLU. No imaging indicated at this time. Patient most likely bronchitis will DC home with antibiotics and symptomatic treatment structures return if any new or worsening symptoms to follow up with primary care provider. Patient understands agrees with this plan. [facility] - URI/Sore Throat Medical Records Attestation: I reviewed the patient's medical records. Lab Data Attestation: I reviewed the patient's lab results. Labs: Lab Results 11/13/21 Range/Units 15:53 Influenza Type A (PCR) NEGATIVE (Negative) Influenza Type B (PCR) NEGATIVE (Negative) RSV RNA Qual (PCR) NEGATIVE (Negative) SARS-CoV-2 RNA (RT-PCR) NEGATIVE (Negative) Discharge Plan Discharge Clinical Impression: Bronchitis Patient Disposition: Home, Self-Care Instructions: Acute Bronchitis (ED) Additional Instructions: RUN: 11/13/21 1748 PAGE 1 [facility] [address] [place] [address] Agent Telegrapher: Rojas Duke M.D. Specimen Inquiry Name: Julius Fischer Age/Sex: 30/M : 1990 Unit#: [id number] Attend Dr: Shantelle Pulido MD Re11/13/21 Status: REG [facility] SPEC : [id number] RONALDO: 11/13/21 STATUS: COMP REQ : [id number] RECD: 11/13/[address] [facility] [address]: [facility] ED Physician COMP: 11/13/21 ENTERED: 11/13/21-[address] [facility] [address]: NATALIA HORVATH MD, Ahmed MD ORDERED: SARS/FLU/RSV Test Result Flag Reference Site Influenza A PCR NEGATIVE Negative Influenza B PCR NEGATIVE Negative RSV RNA QualPCR NEGATIVE Negative SARSCOV2 RT-PCR NEGATIVE Negative SARS/Flu/RSV See Note All test results must be correlated with clinical findings. Negative results do not preclude SARS-CoV2, influenza A virus, influenza B virus and/or RSV infection and should not be used as the sole basis for treatment or other patient management decisions. Negative results must be combined with clinical observations, patient history, and epidemiological information. This test has not been evaluated for monitoring treatment of infection. This test has been authorized by the FDA under an Emergency Use Authorization (EUA) for use by authorized laboratories. Testing performed on the [employer] GeneXpert utilizing real-time RT-PCR. All SARS CoV2 and positive influenza A/B results are reported to [facility]. END OF REPORT Prescriptions: New azithromycin 250 mg tablet See Rx Instructions .ROUTE .COMPLEX Qty: 6 RF: 0 codeine-guaifenesin [Guaifenesin AC] 10-100 mg/5 mL liquid 5 ml PO Q6H PRN (Reason: cold symptoms) Qty: 120 RF: 0 No Action ibuprofen 800 mg tablet 800 mg PO Q8H PRN (Reason: pain) Qty: 14 RF: 0 acetaminophen [Tylenol Extra Strength] 500 mg tablet 1,000 mg PO QID PRN (Reason: fever or pain) Qty: 14 RF: 0 amoxicillin-pot clavulanate [Augmentin] 875-125 mg tablet 1 tab PO BID 14 Days Qty: 28 RF: 0 oxycodone 5 mg tablet 5 mg PO BID PRN (Reason: pain) Qty: 10 RF: 0 ibuprofen 800 mg tablet 800 mg PO Q8H PRN (Reason: pain) Qty: 14 RF: 0 ibuprofen 800 mg tablet 800 mg PO Q8H PRN (Reason: pain) Qty: 14 RF: 0 acetaminophen [Tylenol Extra Strength] 500 mg tablet 500 mg PO Q6H PRN (Reason: pain) Qty: 14 RF: 0 oxycodone 5 mg tablet 5 mg PO BID PRN (Reason: pain) Qty: 14 RF: 0 nitrofurantoin monohyd/m-cryst [Macrobid] 100 mg capsule 100 mg PO BEDTIME 14 Days Qty: 14 RF: 0 ibuprofen 800 mg tablet 800 mg PO Q8H PRN (Reason: pain) Qty: 30 RF: 0 doxycycline hyclate 100 mg capsule 100 mg PO BID Qty: 14 RF: 0 cephalexin 500 mg capsule 500 mg PO BID 7 Days Qty: 14 RF: 0 ibuprofen 600 mg tablet 600 mg PO Q8H PRN (Reason: pain) Qty: 20 RF: 0 cephalexin 500 mg capsule 500 mg PO QID 7 Days Qty: 28 RF: 0 tramadol 50 mg tablet 50 mg PO BID PRN (Reason: pain) Qty: 20 RF: 0 Referrals: Natalia Horvath MD [Primary Care Provider] - 2 days Stand Alone Forms: Work/School Release Print Language: Kuwaiti
== END 2021-11-13 18:09 | disposition home or self-care (01) ==
PROVIDERS: Emergency Provider Emergency Medicine; PCP Internal Medicine
DX: J40 Bronchitis, not specified as acute or chronic (principal); Z20.822 Contact with and (suspected) exposure to COVID-19
CPT/HCPCS: 0241U; 36415; 99283

== ENCOUNTER 2021-11-18 13:05 | Outpatient (REF) | payer OTHER, SELFPAY | END 2021-11-18 13:06 | disposition home or self-care (01) | LOC: HO.LAB 13:05 | PROVIDERS: Visit Provider Internal Medicine | DX: Z20.822 Contact with and (suspected) exposure to COVID-19 (principal) | CPT/HCPCS: C9803; U0003; U0005 ==

== ENCOUNTER 2022-01-05 06:01 | Emergency (ER) | payer OTHER, SELFPAY ==
[2022-01-05 06:05] VITALS: BP 103/67; PULSE 80; RESP 18; TEMP 36.4; O2SAT 100; BMI 22.8
--- NOTE | 2022-01-05 06:37 | ED_ITS ---
HPI - Abdominal Pain General Chief Complaint: Abdominal Pain Stated Complaint: Abd pain Time Seen by Provider: 01/05/22 06:36 Source: patient Mode of arrival: ambulatory Limitations: no limitations History of Present Illness HPI narrative: here requesting GI cocktail MD elicited complaint: abdominal pain Pertinent past history: gastritis (not on medications) Onset (ago): year(s) Pain Consistency: constant Location: epigastric Severity: moderate Quality: burning Radiation: none Migration to: no migration Exacerbating factors: eating Relieving factors: nothing Context: history of similar episodes Associated symptoms: nausea and vomiting (has intermittent AM vomiting) Treatments prior to arrival: other (does not have Rx to take at home) Related Data Previous Rx's Medication Instructions Recorded ibuprofen 800 mg tablet 800 mg PO Q8H PRN #14 tab 02/02/21 acetaminophen 500 mg tablet 500 mg PO Q6H PRN #14 tab 02/06/21 (Tylenol Extra Strength) ibuprofen 800 mg tablet 800 mg PO Q8H PRN #14 tab 02/06/21 oxycodone 5 mg tablet 5 mg PO BID PRN #14 tab 02/06/21 ibuprofen 800 mg tablet 800 mg PO Q8H PRN #30 tab 03/03/21 nitrofurantoin 100 mg PO BEDTIME 14 Days #14 cap 03/03/21 monohydrate/macrocrystals 100 mg capsule (Macrobid) acetaminophen 500 mg tablet 1,000 mg PO QID PRN #14 tab 06/16/21 (Tylenol Extra Strength) amoxicillin 875 mg-potassium 1 tab PO BID 14 Days #28 tab 06/16/21 clavulanate 125 mg tablet (Augmentin) ibuprofen 800 mg tablet 800 mg PO Q8H PRN #14 tab 06/16/21 oxycodone 5 mg tablet 5 mg PO BID PRN #10 tab 06/16/21 cephalexin 500 mg capsule 500 mg PO BID 7 Days #14 cap 06/18/21 cephalexin 500 mg capsule 500 mg PO QID 7 Days #28 cap 06/18/21 doxycycline hyclate 100 mg capsule 100 mg PO BID #14 cap 06/18/21 ibuprofen 600 mg tablet 600 mg PO Q8H PRN #20 tab 06/18/21 tramadol 50 mg tablet 50 mg PO BID PRN #20 tab 06/18/21 azithromycin 250 mg tablet See Rx Instructions .ROUTE 11/13/21 .COMPLEX #6 tab codeine 10 mg-guaifenesin 100 mg/5 5 ml PO Q6H PRN #120 ml 11/13/21 mL oral liquid (Guaifenesin AC) omeprazole 20 mg capsule,delayed 20 mg PO DAILY #30 cap 01/05/22 release ondansetron 4 mg disintegrating 4 mg PO Q8H PRN #20 tab 01/05/22 tablet Allergies Allergy/AdvReac Type Severity Reaction Status Date / Time No Known Allergies Allergy Verified 06/18/21 11:32 Review of Systems Review of Systems Constitutional : No Weight loss, No Fever, No Chills ENT/Mouth : No sore throat, No Rhinorrhea Eyes: No Swelling, No Redness Cardiovascular : No Chest Pain, No SOB, NoEdema Respiratory : No Cough, No Sputum, No Wheezing Gastrointestinal : Positive Nausea, no Vomiting, no Diarrhea, positive abdominal Pain, No Hematochezia, No Melena Genitourinary : No Dysuria, No Urinary Frequency, No Hematuria, No Urgency Musculoskeletal : No joint pain, No Myalgias, No Joint Swelling Skin : No Skin Lesions, No rash Neuro : No Weakness, No Numbness, No Dizziness, No Headache Psych : No Anxiety/Panic, No Depression Heme/Lymph: No Bruising, No Lymphadenopathy Endocrine : No Polyuria, No Polydipsia All other systems reviewed and are negative. Physical Exam Verdana 4l Vital Signs: Verdana 4d Verdana 4d Vital Signs: Verdana 4d Verdana 4Bd Last Vital Signs Verdana 4d Slitter Helper New 4d Slitter Helper New 4d Temp 97.5 F 01/05/22 06:05 Slitter Helper New 4d Pulse 80 01/05/22 06:05 Slitter Helper New 4d Resp 18 01/05/22 06:05 BP 103/67 01/05/22 06:05 Pulse Ox 100 01/05/22 06:05 BMI result Body Mass Index 22.8 Appearance: Alert. Oriented X3. No acute distress. Eyes: Pupils equal, round and reactive to light. ENT: Pharynx normal. Neck: Normal inspection. Neck supple. CVS: Normal heart rate and rhythm. Pulses normal. Respiratory: No respiratory distress. Breath sounds normal. Abdomen: Soft and nontender. Skin: Skin warm and dry. Normal skin color. Normal skin turgor. Extremities: No lower extremity edema. No calf ttp Neuro: Oriented X 3. No motor deficit. No sensory deficit. MDM - Abdominal Pain MDM Narrative Medical decision making narrative: 31 yo male here with hx of gastritis - untreated GERD no prior GI interventions. Not toxic, benign abdomen, VS stable, here requesting GI cocktail. At this time will give dose start on PPI and refer to GI - stable for DC Discharge Plan Discharge Clinical Impression: Gastritis Qualifiers: Gastritis type: unspecified gastritis Chronicity: acute Gastritis bleeding: without bleeding Qualified Code(s): K29.00 - Acute gastritis without bleeding Patient Disposition: Home, Self-Care Instructions: Gastritis (ED), Diet for Stomach Ulcers and Gastritis (ED) Additional Instructions: return to ED for any worsening symptoms or concerns Prescriptions: New ondansetron 4 mg tablet,disintegrating 4 mg PO Q8H PRN (Reason: nausea and vomiting) Qty: 20 0RF omeprazole 20 mg capsule,delayed release(DR/EC) 20 mg PO DAILY Qty: 30 2RF No Action ibuprofen 800 mg tablet 800 mg PO Q8H PRN (Reason: pain) Qty: 14 0RF acetaminophen [Tylenol Extra Strength] 500 mg tablet 1,000 mg PO QID PRN (Reason: fever or pain) Qty: 14 0RF amoxicillin-pot clavulanate [Augmentin] 875-125 mg tablet 1 tab PO BID 14 Days Qty: 28 0RF oxycodone 5 mg tablet 5 mg PO BID PRN (Reason: pain) Qty: 10 0RF ibuprofen 800 mg tablet 800 mg PO Q8H PRN (Reason: pain) Qty: 14 0RF ibuprofen 800 mg tablet 800 mg PO Q8H PRN (Reason: pain) Qty: 14 0RF acetaminophen [Tylenol Extra Strength] 500 mg tablet 500 mg PO Q6H PRN (Reason: pain) Qty: 14 0RF oxycodone 5 mg tablet 5 mg PO BID PRN (Reason: pain) Qty: 14 0RF nitrofurantoin monohyd/m-cryst [Macrobid] 100 mg capsule 100 mg PO BEDTIME 14 Days Qty: 14 0RF Rx Instructions: must administer with a meal/food ibuprofen 800 mg tablet 800 mg PO Q8H PRN (Reason: pain) Qty: 30 0RF doxycycline hyclate 100 mg capsule 100 mg PO BID Qty: 14 0RF cephalexin 500 mg capsule 500 mg PO BID 7 Days Qty: 14 0RF ibuprofen 600 mg tablet 600 mg PO Q8H PRN (Reason: pain) Qty: 20 0RF cephalexin 500 mg capsule 500 mg PO QID 7 Days Qty: 28 0RF tramadol 50 mg tablet 50 mg PO BID PRN (Reason: pain) Qty: 20 0RF azithromycin 250 mg tablet See Rx Instructions .ROUTE .COMPLEX Qty: 6 0RF Rx Instructions: take 500 mg today (day 1), then 250 mg for 4 days (days 2-5) codeine-guaifenesin [Guaifenesin AC] 10-100 mg/5 mL liquid 5 ml PO Q6H PRN (Reason: cold symptoms) Qty: 120 0RF Referrals: Teo Culver [Physician] - 2 weeks Stand Alone Forms: Work/School Release Interventions: ED Discharge Assessment Last Done: 01/05/22 07:45 Discharge Date/Time: 01/05/22 07:45 [facility] Past Medical History Medical History Gastritis No known health problems Social History Social History (Updated 01/05/22 @ 06:49 by Adri Walker DO) Patient Tobacco Use Status: Never used Tobacco Advance Directives: No
[2022-01-05] MEDS: Lidocaine HCl Viscous 2 % 15 ML SOLUTION MUCOUS MEM (07:06)
[2022-01-05] MEDS: Magnesium Hydrox/Alum Hydrox 30 ML ORAL.SUSP PO (07:06)
[2022-01-05] MEDS: Ondansetron ODT 4 MG TAB.RAPDIS TRANSLINGU (07:06)
== END 2022-01-05 07:45 | disposition home or self-care (01) ==
PROVIDERS: Emergency Provider Emergency Medicine; PCP Internal Medicine
DX: K29.00 Acute gastritis without bleeding (principal); R10.13 Epigastric pain
CPT/HCPCS: 99283

== ENCOUNTER 2022-06-29 12:15 | Emergency (ER) | payer OTHER, SELFPAY ==
--- NOTE | ~2022-06-29 | XR_ITS ---
EXAMINATION: XR SHOULDER, LEFT CLINICAL INFORMATION: Shoulder pain COMPARISON: None TECHNIQUE: AP external rotation, Grashey, scapular Y, and axillary views of the left shoulder. FINDINGS: The bones and soft tissues are normal. No fracture. Glenohumeral and acromioclavicular alignment is anatomic with normal joint space. No abnormal soft tissue calcifications. XR/XR shoulder LT min 2V IMPRESSION: Normal left shoulder.
[2022-06-29 13:14] VITALS: BP 110/70; PULSE 64; RESP 12; O2SAT 100; BMI 22.8
--- NOTE | 2022-06-29 14:11 | ED.EXTPRO ---
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 Patient also denies any traumatic injury to the shoulder and has not tried any [id number] medications such as ibuprofen or Tylenol. Otherwise, patient denies any fever, chills, shortness of breath, chest pain/palpitations. Related Data Previous Rx's Medication Instructions Recorded ibuprofen 800 mg tablet 800 mg PO Q8H PRN pain #14 tabs 02/02/21 acetaminophen 500 mg tablet 500 mg PO Q6H PRN pain #14 tabs 02/06/21 (Tylenol Extra Strength) ibuprofen 800 mg tablet 800 mg PO Q8H PRN pain #14 tabs 02/06/21 oxycodone 5 mg tablet 5 mg PO BID PRN pain #14 tabs 02/06/21 ibuprofen 800 mg tablet 800 mg PO Q8H PRN pain #30 tabs 03/03/21 nitrofurantoin 100 mg PO BEDTIME 14 days #14 caps 03/03/21 monohydrate/macrocrystals 100 mg capsule (Macrobid) acetaminophen 500 mg tablet 1,000 mg PO QID PRN fever or pain 06/16/21 (Tylenol Extra Strength) #14 tabs amoxicillin 875 mg-potassium 1 tab PO BID 14 days #28 tabs 06/16/21 clavulanate 125 mg tablet (Augmentin) ibuprofen 800 mg tablet 800 mg PO Q8H PRN pain #14 tabs 06/16/21 oxycodone 5 mg tablet 5 mg PO BID PRN pain #10 tabs 06/16/21 cephalexin 500 mg capsule 500 mg PO BID 7 days #14 caps 06/18/21 cephalexin 500 mg capsule 500 mg PO QID 7 days #28 caps 06/18/21 doxycycline hyclate 100 mg capsule 100 mg PO BID #14 caps 06/18/21 ibuprofen 600 mg tablet 600 mg PO Q8H PRN pain #20 tabs 06/18/21 tramadol 50 mg tablet 50 mg PO BID PRN pain #20 tabs 06/18/21 azithromycin 250 mg tablet See Rx Instructions PO .COMPLEX #6 11/13/21 tabs codeine 10 mg-guaifenesin 100 mg/5 5 ml PO Q6H PRN cold symptoms #120 11/13/21 mL oral liquid (Guaifenesin AC) mL omeprazole 20 mg capsule,delayed 20 mg PO DAILY #30 caps 01/05/22 release ondansetron 4 mg disintegrating 4 mg PO Q8H PRN nausea and 01/05/22 tablet vomiting #20 tabs Allergies Allergy/AdvReac Type Severity Reaction Status Date / Time No Known Allergies Allergy Verified 06/18/21 11:32 Review of Systems Review of Systems: Pertinent positives and negatives as stated in HPI 10 point review of systems otherwise negative. [facility] Past Medical History Source: nursing notes reviewed Medical History Gastritis No known health problems Social History Social History Patient Tobacco Use Status: Never used Tobacco Advance Directives: No Advance Directives Information Provided: No Physical Exam Vital Signs: Vital Signs: Last Vital Signs Pulse 64 06/29/22 13:14 Resp 12 06/29/22 13:14 BP 110/70 06/29/22 13:14 Pulse Ox 100 06/29/22 13:14 O2 Del Method 06/29/22 13:14 BMI result Body Mass Index 22.8 VITAL SIGNS: Reviewed. GENERAL: Well developed, well nourished, in no acute distress. HEAD: Normocephalic/atraumatic EYES: PERRLA, EOMI EARS: Ext canals without abnormality OROPHARYNX: no oral lesions noted, posterior pharynx clear LUNGS: Normal breath sounds. No adventitious sounds or accessory muscle use. SpO2<100> CARDIOVASCULAR: Regular rate and rhythm without noted murmurs ABDOMEN: Soft, non-tender, non-distended with bowel sounds. MUSCULOSKELETAL: No tenderness, deformities, or effusions noted on gross inspection. EXTREMITIES: No cyanosis, clubbing or edema; LEFT SHOULDER/UPPER EXTREMITY: No observed deformity, no erythema/induration, there is full range of motion noted at that shoulder without significant difficulty and neurovascular is intact distal with warm hand and capillary refill less than 2 seconds. Hand institute scientist is 5/5 SKIN: Inspection of the skin reveals no rashes NEUROLOGIC: Alert and oriented x 4. Strength and sensation to light touch were grossly intact x 4. Course Course Course Narrative: 31-year-old male with history and clinical presentation consistent with shoulder pain possibly associated with current job and chronicity of movement. Will obtain x-ray to rule out any occult fracture or dislocation however feel that this is far less likely. Patient provided with combination analgesics and will be re-evaluated. Review of x-ray negative for acute findings and on re-evaluation patient is feeling better. He was discharged home in stable condition. Discharge Plan Discharge Clinical Impression: Left shoulder pain Patient Disposition: Home, Self-Care Instructions: Shoulder Pain (ED) Additional Instructions: 1. Tylenol 1000 mg, orally, every 6 hours as needed for pain control. Do not exceed 4000 mg within 24 hours. 2. Ibuprofen 400 mg, orally with milk or food, every 6 hours as needed for pain control. 3. Follow-up with your primary care provider in next 1-2 days. Return to the ER for worsening symptoms. Prescriptions: No Action ibuprofen 800 mg tablet 800 mg PO Q8H PRN (Reason: pain) Qty: 14 0RF acetaminophen [Tylenol Extra Strength] 500 mg tablet 1,000 mg PO QID PRN (Reason: fever or pain) Qty: 14 0RF amoxicillin-pot clavulanate [Augmentin] 875-125 mg tablet 1 tab PO BID 14 Days Qty: 28 0RF oxycodone 5 mg tablet 5 mg PO BID PRN (Reason: pain) Qty: 10 0RF ibuprofen 800 mg tablet 800 mg PO Q8H PRN (Reason: pain) Qty: 14 0RF ibuprofen 800 mg tablet 800 mg PO Q8H PRN (Reason: pain) Qty: 14 0RF acetaminophen [Tylenol Extra Strength] 500 mg tablet 500 mg PO Q6H PRN (Reason: pain) Qty: 14 0RF oxycodone 5 mg tablet 5 mg PO BID PRN (Reason: pain) Qty: 14 0RF nitrofurantoin monohyd/m-cryst [Macrobid] 100 mg capsule 100 mg PO BEDTIME 14 Days Qty: 14 0RF Rx Instructions: must administer with a meal/food ibuprofen 800 mg tablet 800 mg PO Q8H PRN (Reason: pain) Qty: 30 0RF doxycycline hyclate 100 mg capsule 100 mg PO BID Qty: 14 0RF cephalexin 500 mg capsule 500 mg PO BID 7 Days Qty: 14 0RF ibuprofen 600 mg tablet 600 mg PO Q8H PRN (Reason: pain) Qty: 20 0RF cephalexin 500 mg capsule 500 mg PO QID 7 Days Qty: 28 0RF tramadol 50 mg tablet 50 mg PO BID PRN (Reason: pain) Qty: 20 0RF azithromycin 250 mg tablet See Rx Instructions .ROUTE .COMPLEX Qty: 6 0RF Rx Instructions: take 500 mg today (day 1), then 250 mg for 4 days (days 2-5) codeine-guaifenesin [Guaifenesin AC] 10-100 mg/5 mL liquid 5 ml PO Q6H PRN (Reason: cold symptoms) Qty: 120 0RF ondansetron 4 mg tablet,disintegrating 4 mg PO Q8H PRN (Reason: nausea and vomiting) Qty: 20 0RF omeprazole 20 mg capsule,delayed release(DR/EC) 20 mg PO DAILY Qty: 30 2RF Referrals: Natalia Noble MD [Primary Care Provider] -
[2022-06-29] MEDS: Acetaminophen 325 MG TABLET 975 MG PO (14:50)
[2022-06-29] MEDS: Ketorolac Tromethamine 15 MG/ML VIAL IM (14:53)
== END 2022-06-29 15:33 | disposition home or self-care (01) ==
PROVIDERS: Emergency Provider Student in an Organized Health Care Education/Training Program; PCP Internal Medicine
DX: M25.512 Pain in left shoulder (principal)
CPT/HCPCS: 73030; 96372; 99284; J1885

== ENCOUNTER 2022-08-20 13:33 | Emergency (ER) | payer OTHER, SELFPAY ==
--- NOTE | ~2022-08-20 | XR_ITS ---
EXAMINATION: XR CHEST CLINICAL INFORMATION: Cough COMPARISON: None TECHNIQUE: 2 views of the chest were obtained. FINDINGS: No significant abnormality is noted involving the heart, lungs, mediastinum, bony thorax or soft tissues. XR/XR chest 2V IMPRESSION: Unremarkable examination.
--- NOTE | 2022-08-20 13:39 | ECG_ITS ---
Test Reason : chest pain Blood Pressure : / mmHG Vent. Rate : 063 BPM Atrial Rate : 063 BPM P-R Int : 102 ms QRS Dur : 086 ms QT Int : 382 ms P-R-T Axes : 063 084 061 degrees QTc Int : 390 ms Sinus rhythm with sinus arrhythmia with short LA Early Repolarization Abnormal ECG When compared with ECG of 2018 19:08, No significant change was found Referred By: Generic ED Physician Electronically Signed By:BESSY FOSTER
[2022-08-20 14:25] VITALS: BP 117/71; PULSE 59; RESP 18; TEMP 36.7; O2SAT 99; BMI 22.0
[2022-08-20 14:37] LABS: MANUAL DIFF FLAG NO
[2022-08-20 14:42] LABS: Basophils Percent Auto 0.3 % (0-2); Eosinophils Absolute Auto 0.3 X10*3/uL (0.0-0.4); Eosinophils Percent Auto 4.1 % (0-4); Hematocrit 43.2 % (42.0-52.0); Hemoglobin 14.4 g/dl (14.0-18.0); Imm Gran Abs Auto 0.01 X10*3/uL (0.00-0.03); Imm Gran Pct Auto 0.2 % (0.0-0.4); Lymphocytes Absolute Auto 1.5 X10*3/uL (1.2-4.9); Mean Corpuscular HGB Conc 33.3 g/dl (31.0-36.0); Mean Corpuscular Hemoglobin 30.4 pg (27.0-33.0); Mean Corpuscular Volume 91.1 fL (80.0-98.0); Mean Platelet Volume 9.7 fL (9.4-12.4); Monocytes Absolute Auto 0.6 X10*3/uL (0.1-1.2); Monocytes Percent Auto 9.3 % (2-11); Neutrophils Absolute Auto 3.7 x10*3/uL (2.0-8.3); Neutrophils Percent Auto 61.1 % (45-73); Platelet Count 189 X10*3/uL (160-400); Red Blood Count 4.74 X10*6/uL (4.60-5.80); Red Cell Distribution Width 11.9 % (11.0-16.0)
[2022-08-20 14:53] LABS: Alanine Aminotransferase 23 U/L (0-40); Albumin Level 4.3 g/dL (3.5-5.0); Alkaline Phosphatase 63 U/L (39-117); Anion Gap 12 (12-20); Aspartate Amino Transferase 23 U/L (5-37); Bilirubin Direct 0.2 mg/dL (0.0-0.5); Bilirubin Total 0.6 mg/dL (0.0-1.0); Blood Urea Nitrogen 15 mg/dL (9-16); Calcium 9.3 mg/dL (8.4-10.2); Carbon Dioxide 28 mmol/L (22-29); Chloride 106 mmol/L (96-108); Estimated Glomerular Filt Rate > 60; Glucose Random 90 mg/dL (60-115); Lipase 15 U/L (8-78); Potassium 4.4 mmol/L (3.3-5.1); Sodium 142 mmol/L (135-145)
[2022-08-20 14:54] LABS: COVID-19 Test Negative (Negative); IDNOW Serial# 16C4AD1C
[2022-08-20 14:58] LABS: Troponin-I High Sensitivity < 3.5 ng/L (<3.5-35.0)
--- NOTE | 2022-08-20 19:09 | ED.CHESTPAIN ---
HPI - Chest Pain General Chief Complaint: Chest Pain Stated Complaint: Chest Pain Since Wednesday Time Seen by Provider: 08/20/22 13:45 History of Present Illness HPI narrative: This is a 31-year-old male who complains of chest discomfort and a dry cough for a few days. He has pain up into his shoulders and into his anterior chest and upper back. He feels a little short of breath. He denies any history of asthma, does have history of gastritis. He denies any fever. He denies any nasal congestion or sore throat. Related Data Previous Rx's Medication Instructions Recorded ibuprofen 800 mg tablet 800 mg PO Q8H PRN pain #14 tabs 02/02/21 acetaminophen 500 mg tablet 500 mg PO Q6H PRN pain #14 tabs 02/06/21 (Tylenol Extra Strength) ibuprofen 800 mg tablet 800 mg PO Q8H PRN pain #14 tabs 02/06/21 oxycodone 5 mg tablet 5 mg PO BID PRN pain #14 tabs 02/06/21 ibuprofen 800 mg tablet 800 mg PO Q8H PRN pain #30 tabs 03/03/21 nitrofurantoin 100 mg PO BEDTIME 14 days #14 caps 03/03/21 monohydrate/macrocrystals 100 mg capsule (Macrobid) acetaminophen 500 mg tablet 1,000 mg PO QID PRN fever or pain 06/16/21 (Tylenol Extra Strength) #14 tabs amoxicillin 875 mg-potassium 1 tab PO BID 14 days #28 tabs 06/16/21 clavulanate 125 mg tablet (Augmentin) ibuprofen 800 mg tablet 800 mg PO Q8H PRN pain #14 tabs 06/16/21 oxycodone 5 mg tablet 5 mg PO BID PRN pain #10 tabs 06/16/21 cephalexin 500 mg capsule 500 mg PO BID 7 days #14 caps 06/18/21 cephalexin 500 mg capsule 500 mg PO QID 7 days #28 caps 06/18/21 doxycycline hyclate 100 mg capsule 100 mg PO BID #14 caps 06/18/21 ibuprofen 600 mg tablet 600 mg PO Q8H PRN pain #20 tabs 06/18/21 tramadol 50 mg tablet 50 mg PO BID PRN pain #20 tabs 06/18/21 azithromycin 250 mg tablet See Rx Instructions PO .COMPLEX #6 11/13/21 tabs codeine 10 mg-guaifenesin 100 mg/5 5 ml PO Q6H PRN cold symptoms #120 11/13/21 mL oral liquid (Guaifenesin AC) mL omeprazole 20 mg capsule,delayed 20 mg PO DAILY #30 caps 01/05/22 release ondansetron 4 mg disintegrating 4 mg PO Q8H PRN nausea and 01/05/22 tablet vomiting #20 tabs [id number] 7.5 ml PO Q4-6H PRN cold symptoms 08/20/22 2 mg-30 mg-10 mg/5 mL oral syrup #200 mL (Bromfed DM) ibuprofen 800 mg tablet 800 mg PO Q8H PRN pain #30 tabs 08/20/22 Allergies Allergy/AdvReac Type Severity Reaction Status Date / Time No Known Allergies Allergy Verified 06/18/21 11:32 Review of Systems Review of Systems: Yes all other systems are reviewed and are negative Constitutional: Constitutional: Reports as per HPI and Denies fever(s) Eyes: Eyes: Reports as per HPI and Reports no additional eye complaints ENT: Reports system reviewed and no additional complaints, except as documented, Reports as per HPI, Denies nasal congestion, Denies nasal discharge and Denies sore throat Cardiovascular: Cardiovascular: Reports as per HPI, Reports chest pain and Denies dyspnea Respiratory: Respiratory: Reports as per HPI, Reports cough and Denies dyspnea Gastrointestinal: Gastrointestinal: Reports as per HPI, Denies abdominal pain, Denies diarrhea, Denies nausea and Denies vomiting Comments: Currently feels very hungry Genitourinary: Genitourinary: Reports as per HPI, Denies hematuria, Denies dysuria and Denies urinary frequency Musculoskeletal: Musculoskeletal: Reports no additional musculoskeletal complaints and Denies numbness Integumentary/Breasts: Skin/Breast: Reports as per HPI and Denies rash Neurologic: Reports as per HPI, Denies focal weakness and Denies numbness Psychiatric: Psychiatric: Reports no additional psychiatric complaints and Reports as per HPI Endocrine: Endocrine: Reports no additional endocrine complaints and Reports as per HPI Hematologic/Lymphatic: Hematologic/Lymphatic: Reports no additional hematologic/lymphatic complaints, Reports as per HPI and Reports other (No peripheral edema) [facility] Past Medical History Medical History Gastritis No known health problems Social History Social History Patient Tobacco Use Status: Never used Tobacco Advance Directives: No Advance Directives Information Provided: No Physical Exam Vital Signs: Vital Signs: Last Vital Signs Temp 98.1 F 08/20/22 14:25 Pulse 59 08/20/22 14:25 Resp 18 08/20/22 14:25 BP 117/71 08/20/22 14:25 Pulse Ox 99 08/20/22 14:25 O2 Del Method 08/20/22 14:25 BMI result Body Mass Index 22.0 Const: Other: PERRLA Conj [place] Mucous membranes moist Throat clear Neck supple Lungs CTA Heart RRR no murmurs rubs or gallops Abd soft, non tender, non distended Extremities no pitting edema Neuro alert and oriented x 3, non focal MDM - Chest Pain MDM Narrative Medical decision making narrative: Patient with a mild cough, chest discomfort. EKG shows no changes. Chest x-ray is negative. COVID negative. Patient appears well clinically. Patient be treated supportively Lab Data Attestation: I reviewed the patient's lab results. Result diagrams: 08/20/22 14:32 08/20/22 14:32 Labs: Lab Results 08/20/22 08/20/22 08/20/22 Range/Units 14:32 14:32 14:32 WBC 6.0 (4.8-10.8) X10*3/uL RBC 4.74 (4.60-5.80) X10*6/uL Hgb 14.4 (14.0-18.0) g/dl Hct 43.2 (42.0-52.0) % MCV 91.1 (80.0-98.0) fL MCH 30.4 (27.0-33.0) pg MCHC 33.3 (31.0-36.0) g/dl RDW 11.9 (11.0-16.0) % Plt Count 189 (160-400) X10*3/uL MPV 9.7 (9.4-12.4) fL Immature Gran % (Auto) 0.2 (0.0-0.4) % Neut % (Auto) 61.1 (45-73) % Lymph % (Auto) 25.0 (20-40) % [place] % (Auto) 9.3 (2-11) % Eos % (Auto) 4.1 H (0-4) % Baso % (Auto) 0.3 (0-2) % Lymph # (Auto) 1.5 (1.2-4.9) X10*3/uL [place] # (Auto) 0.6 (0.1-1.2) X10*3/uL Eos # (Auto) 0.3 (0.0-0.4) X10*3/uL Baso # (Auto) 0.0 (0.0-0.2) X10*3/uL Abs Immat Gran (auto) 0.01 (0.00-0.03) X10*3/uL Absolute Neuts (auto) 3.7 (2.0-8.3) x10*3/uL Absolute Nucleated RBC 0.000 (0.0-0.012) X10*3/uL Nucleated RBC % (auto) 0.0 (0.0-0.2) /100WBC Sodium 142 (135-145) mmol/L Potassium 4.4 (3.3-5.1) mmol/L Chloride 106 (96-108) mmol/L Carbon Dioxide 28 (22-29) mmol/L Anion Gap 12 (12-20) BUN 15 (9-16) mg/dL Creatinine 0.81 (0.5-1.4) mg/dL Estim Creat Clear Calc 124.0 Estimated GFR > 60 Random Glucose 90 (60-115) mg/dL Calcium 9.3 (8.4-10.2) mg/dL Total Bilirubin 0.6 (0.0-1.0) mg/dL Direct Bilirubin 0.2 (0.0-0.5) mg/dL AST 23 (5-37) U/L ALT 23 (0-40) U/L Alkaline Phosphatase 63 (39-117) U/L Troponin I High Sens < 3.5 (<3.5-35.0) ng/L Total Protein 7.0 (6.5-8.0) g/dL Albumin 4.3 (3.5-5.0) g/dL Lipase 15 (8-78) U/L COVID-19 (OBDULIO) (Negative) COVID-19 Clin Com 08/20/22 Range/Units 14:32 WBC (4.8-10.8) X10*3/uL RBC (4.60-5.80) X10*6/uL Hgb (14.0-18.0) g/dl Hct (42.0-52.0) % MCV (80.0-98.0) fL MCH (27.0-33.0) pg MCHC (31.0-36.0) g/dl RDW (11.0-16.0) % Plt Count (160-400) X10*3/uL MPV (9.4-12.4) fL Immature Gran % (Auto) (0.0-0.4) % Neut % (Auto) (45-73) % Lymph % (Auto) (20-40) % [place] % (Auto) (2-11) % Eos % (Auto) (0-4) % Baso % (Auto) (0-2) % Lymph # (Auto) (1.2-4.9) X10*3/uL [place] # (Auto) (0.1-1.2) X10*3/uL Eos # (Auto) (0.0-0.4) X10*3/uL Baso # (Auto) (0.0-0.2) X10*3/uL Abs Immat Gran (auto) (0.00-0.03) X10*3/uL Absolute Neuts (auto) (2.0-8.3) x10*3/uL Absolute Nucleated RBC (0.0-0.012) X10*3/uL Nucleated RBC % (auto) (0.0-0.2) /100WBC Sodium (135-145) mmol/L Potassium (3.3-5.1) mmol/L Chloride (96-108) mmol/L Carbon Dioxide (22-29) mmol/L Anion Gap (12-20) BUN (9-16) mg/dL Creatinine (0.5-1.4) mg/dL Estim Creat Clear Calc Estimated GFR Random Glucose (60-115) mg/dL Calcium (8.4-10.2) mg/dL Total Bilirubin (0.0-1.0) mg/dL Direct Bilirubin (0.0-0.5) mg/dL AST (5-37) U/L ALT (0-40) U/L Alkaline Phosphatase (39-117) U/L Troponin I High Sens (<3.5-35.0) ng/L Total Protein (6.5-8.0) g/dL Albumin (3.5-5.0) g/dL Lipase (8-78) U/L COVID-19 (OBDULIO) Negative (Negative) COVID-19 Clin Com See Note Imaging Data Chest x-ray: Radiologist's impression: IMPRESSION: Unremarkable examination. ECG Data ECG #1: ECG interpretation date: 08/20/22 ECG interpretation time: 19:19 Interpretation: Sinus bradycardia with rate of 52. First degree AV block. Right bundle branch block. Nonspecific ST and T-wave changes, likely early repolarization. EKG unchanged from March 2019 Discharge Plan Discharge Clinical Impression: Acute viral bronchitis Patient Disposition: Home, Self-Care Instructions: Acute Bronchitis (ED) Additional Instructions: Drink plenty of fluids. Use ibuprofen for pain as prescribed. Use Bromfed for cough as prescribed. Follow up with her primary care physician as needed return for any new or worsened symptoms such as fever, worsening cough or shortness of breath Prescriptions: New ibuprofen 800 mg tablet 800 mg PO Q8H PRN (Reason: pain) Qty: 30 0RF [id number] [Bromfed DM] 2-30-10 mg/5 mL syrup 7.5 ml PO Q4-6H PRN (Reason: cold symptoms) Qty: 200 0RF No Action ibuprofen 800 mg tablet 800 mg PO Q8H PRN (Reason: pain) Qty: 14 0RF acetaminophen [Tylenol Extra Strength] 500 mg tablet 1,000 mg PO QID PRN (Reason: fever or pain) Qty: 14 0RF amoxicillin-pot clavulanate [Augmentin] 875-125 mg tablet 1 tab PO BID 14 Days Qty: 28 0RF oxycodone 5 mg tablet 5 mg PO BID PRN (Reason: pain) Qty: 10 0RF ibuprofen 800 mg tablet 800 mg PO Q8H PRN (Reason: pain) Qty: 14 0RF ibuprofen 800 mg tablet 800 mg PO Q8H PRN (Reason: pain) Qty: 14 0RF acetaminophen [Tylenol Extra Strength] 500 mg tablet 500 mg PO Q6H PRN (Reason: pain) Qty: 14 0RF oxycodone 5 mg tablet 5 mg PO BID PRN (Reason: pain) Qty: 14 0RF nitrofurantoin monohyd/m-cryst [Macrobid] 100 mg capsule 100 mg PO BEDTIME 14 Days Qty: 14 0RF Rx Instructions: must administer with a meal/food ibuprofen 800 mg tablet 800 mg PO Q8H PRN (Reason: pain) Qty: 30 0RF doxycycline hyclate 100 mg capsule 100 mg PO BID Qty: 14 0RF cephalexin 500 mg capsule 500 mg PO BID 7 Days Qty: 14 0RF ibuprofen 600 mg tablet 600 mg PO Q8H PRN (Reason: pain) Qty: 20 0RF cephalexin 500 mg capsule 500 mg PO QID 7 Days Qty: 28 0RF tramadol 50 mg tablet 50 mg PO BID PRN (Reason: pain) Qty: 20 0RF azithromycin 250 mg tablet See Rx Instructions .ROUTE .COMPLEX Qty: 6 0RF Rx Instructions: take 500 mg today (day 1), then 250 mg for 4 days (days 2-5) codeine-guaifenesin [Guaifenesin AC] 10-100 mg/5 mL liquid 5 ml PO Q6H PRN (Reason: cold symptoms) Qty: 120 0RF ondansetron 4 mg tablet,disintegrating 4 mg PO Q8H PRN (Reason: nausea and vomiting) Qty: 20 0RF omeprazole 20 mg capsule,delayed release(DR/EC) 20 mg PO DAILY Qty: 30 2RF
[2022-08-20 19:55] VITALS: BP 121/75; PULSE 60; RESP 16; O2SAT 100
== END 2022-08-20 19:57 | disposition home or self-care (01) ==
PROVIDERS: Emergency Provider Emergency Medicine; PCP Internal Medicine
DX: J20.8 Acute bronchitis due to other specified organisms (principal); R07.89 Other chest pain; Z20.822 Contact with and (suspected) exposure to COVID-19; Z79.899 Other long term (current) drug therapy
CPT/HCPCS: 36415; 71046; 80048; 80076; 83690; 84484; 85025; 87635; 93005; 99283; 99284

== ENCOUNTER 2022-11-25 13:00 | Emergency (ER) | payer OTHER, SELFPAY ==
--- NOTE | 2022-11-25 13:29 | ED.ABDPAIN ---
HPI - Abdominal Pain General Chief Complaint: Abdominal Pain <GAYLE Aquino - Last Filed: 11/25/22 13:36> Stated Complaint: abd pain <GAYLE Aquino - Last Filed: 11/25/22 13:36> Time Seen by Provider: 11/25/22 14:43 <GAYLE Aquino - Last Filed: 11/25/22 13:36> Source: patient <GAYLE Estevez Last Filed: 11/25/22 16:05> Mode of arrival: ambulatory <GAYLE Estevez - Last Filed: 11/25/22 16:05> Limitations: no limitations <GAYLE Estevez Last Filed: 11/25/22 16:05> History of Present Illness HPI narrative: Patient is a 31 year old assigned male at with a history of gastritis presenting to the emergency department today with epigastric pain. Patient states that he has had this issue intermittently since 2009 and has not seen a specialist or taken any OTC medications for it. Patient states that he needs a note for work to cover him over the last few weeks that he has had this specific epigastric pain flare. Patient denies any dizziness, lightheadedness, nausea, vomiting, fever, chills, blurry vision, double vision, loss of vision, chest pain, difficulty breathing, shortness of breath, back pain, night sweats, pain with urination, increased urinary frequency, increased urinary urgency, blood in his urine or stool, syncope or a near syncopal episode, recent trauma or falls, bowel incontinence, bladder incontinence, bowel retention, bladder retention, or any other complaints at this time. <GAYLE Estevez - Last Filed: 11/25/22 16:05> Pertinent past history: gastritis <GAYLE Estevez - Last Filed: 11/25/22 16:05> Onset (ago): year(s) <GAYLE Estevez Last Filed: 11/25/22 16:05> Pain Consistency: intermittent <GAYLE Estevez Last Filed: 11/25/22 16:05> Location: epigastric <GAYLE Estevez Last Filed: 11/25/22 16:05> Severity: mild <GAYLE Estevez - Last Filed: 11/25/22 16:05> Pain scale (0-10): 2 <GAYLE Estevez - Last Filed: 11/25/22 16:05> Quality: aching <GAYLE Estevez - Last Filed: 11/25/22 16:05> Radiation: none <GAYLE Estevez - Last Filed: 11/25/22 16:05> Migration to: no migration <GAYLE Estevez - Last Filed: 11/25/22 16:05> Exacerbating factors: nothing <GAYLE Estevez - Last Filed: 11/25/22 16:05> Relieving factors: nothing <GAYLE Estevez - Last Filed: 11/25/22 16:05> Associated symptoms: denies other symptoms <GAYLE Estevez - Last Filed: 11/25/22 16:05> Related Data Home Medications: Previous Rx's Medication Instructions Recorded omeprazole 40 mg capsule,delayed 40 mg PO DAILY #30 caps 11/25/22 release <GAYLE Aquino - Last Filed: 11/25/22 13:36> Allergies/Adverse Reactions: Allergies Allergy/AdvReac Type Severity Reaction Status Date / Time No Known Allergies Allergy Verified 11/25/22 13:34 <GAYLE Aquino - Last Filed: 11/25/22 13:36> Review of Systems Constitutional: Reports no additional constitutional complaints, Denies chills, Denies fever(s) and Denies night sweats <GAYLE Estevez - Last Filed: 11/25/22 16:05> Eyes: Reports no additional eye complaints, Denies blurry vision, Denies change in vision, Denies diplopia, Denies eye discharge, Denies loss of vision and Denies eye pain <GAYLE Etsevez - Last Filed: 11/25/22 16:05> Denies dizziness <GAYLE Estevez - Last Filed: 11/25/22 16:05> Cardiovascular: Reports no additional cardiovascular complaints, Denies chest pain, Denies lightheadedness, Denies Loss of Consciousness and Denies dyspnea <GAYLE Estevez Last Filed: 11/25/22 16:05> Respiratory: Reports no additional respiratory complaints and Denies dyspnea <GAYLE Estevez Last Filed: 11/25/22 16:05> Gastrointestinal: Reports no additional gastrointestinal complaints, Reports abdominal pain (epigastric pain), Denies melena, Denies hematochezia, Denies change in bowel habits and Denies change in stool character <GAYLE Estevez - Last Filed: 11/25/22 16:05> Genitourinary: Reports no additional male genitourinary complaints, Denies hematuria, Denies oliguria, Denies difficulty urinating, Denies dysuria, Denies urinary frequency, Denies urinary hesitancy, Denies urinary incontinence and Denies urinary urgency <GAYLE Estevez - Last Filed: 11/25/22 16:05> Musculoskeletal: Reports no additional musculoskeletal complaints, Denies numbness and Denies tingling <GAYLE Estevez - Last Filed: 11/25/22 16:05> Denies dizziness, Denies loss of vision, Denies numbness and Denies tingling <GAYLE Estevez - Last Filed: 11/25/22 16:05> Psychiatric: Reports no additional psychiatric complaints <GAYLE Estevez - Last Filed: 11/25/22 16:05> Endocrine: Reports no additional endocrine complaints <GAYLE Estevez - Last Filed: 11/25/22 16:05> Hematologic/Lymphatic: Reports no additional hematologic/lymphatic complaints <GAYLE Estevez - Last Filed: 11/25/22 16:05> Allergic/Immunologic: Reports no additional allergic/immunologic complaints <GAYLE Estevez - Last Filed: 11/25/22 16:05> [facility] Past Medical History Attestation statement: The following information was validated with the patient. <GAYLE Estevez - Last Filed: 11/25/22 16:05> Source: old records reviewed and nursing notes reviewed <GAYLE Estevez - Last Filed: 11/25/22 16:05> Medical History: Medical History Gastritis No known health problems <GAYLE Aquino - Last Filed: 11/25/22 13:36> Social History Social History: Social History Patient Tobacco Use Status: Never used Tobacco Advance Directives: No Advance Directives Information Provided: No <GAYLE Aquino Last Filed: 11/25/22 13:36> Physical Exam ED Vital Signs: Vital Signs - 24 hr 11/25/22 13:31 Temperature 97.9 F Pulse Rate 69 Respiratory Rate 16 Blood Pressure 114/64 Pulse Oximetry 98 Oxygen Delivery Method Room Air BMI result Body Mass Index 21.2 <GAYLE Aquino - Last Filed: 11/25/22 13:36> Vital Signs - 24 hr 11/25/22 13:31 Temperature 97.9 F Pulse Rate 69 Respiratory Rate 16 Blood Pressure 114/64 Pulse Oximetry 98 Oxygen Delivery Method Room Air BMI result Body Mass Index 21.2 <GAYLE Estevez Last Filed: 11/25/22 16:05> Const General: cooperative, no acute distress, alert and awake <GAYLE Estevez Last Filed: 11/25/22 16:05> Nutritional Appearance: well nourished <GAYLE Estevez Last Filed: 11/25/22 16:05> Orientation/consciousness: patient oriented x3 <GAYLE Estevez Last Filed: 11/25/22 16:05> Limitations: no limitations <GAYLE Estevez Last Filed: 11/25/22 16:05> HENMT Head: Yes normal to inspection and Yes atraumatic <GAYLE Estevez Last Filed: 11/25/22 16:05> Ears: hearing grossly normal bilaterally and external ears normal <GAYLE Estevez Last Filed: 11/25/22 16:05> General nose exam: Normal external nose present, no nasal discharge noted and no epistaxis <GAYLE Estevez Last Filed: 11/25/22 16:05> Face and sinus: Yes normal facial exam, No abrasion and No laceration <GAYLE Estevez Last Filed: 11/25/22 16:05> Mouth: Normal oral and palatal mucosa present, no drooling and no muffled voice <GAYLE Estevez Last Filed: 11/25/22 16:05> Eyes General: appearance normal, both eyes and all related structures <GAYLE Estevez - Last Filed: 11/25/22 16:05> Periorbital: periorbital findings normal <Roslyn Hart NC - Last Filed: 11/25/22 16:05> Eyelids: Yes eyelids normal <Roslyn Hart NC - Last Filed: 11/25/22 16:05> Conjunctivae: conjunctivae normal <Roslyn Hart NC - Last Filed: 11/25/22 16:05> Pupils: Equal, round and reactive pupils present <Roslyn Hart NC - Last Filed: 11/25/22 16:05> EOM: EOMs intact bilaterally <Roslyn Hart NC - Last Filed: 11/25/22 16:05> Neck Neck: Yes normal visual inspection, Yes full ROM and Yes no lymphadenopathy <Roslyn Hart NC - Last Filed: 11/25/22 16:05> Chest Chest palpation & inspection: normal inspection of the chest <Roslyn Hart NC - Last Filed: 11/25/22 16:05> Resp Effort & Inspection: normal respiratory effort and able to speak in complete sentences <Roslyn Hart NC - Last Filed: 11/25/22 16:05> Auscultation: clear to auscultation bilaterally <Roslyn Hart NC - Last Filed: 11/25/22 16:05> Cardio Rate: regular rate <Roslyn Hart NC - Last Filed: 11/25/22 16:05> Rhythm: regular rhythm <Roslyn Hart NC - Last Filed: 11/25/22 16:05> GI Inspection: Yes normal to inspection <Roslyn Hart NC - Last Filed: 11/25/22 16:05> Palpation (GI): Soft to palpation, not firm, nontender, no guarding and not rigid <Roslyn Hart NC - Last Filed: 11/25/22 16:05> Neuro General: patient oriented x3 and moves all extremities <Roslyn Hart NC - Last Filed: 11/25/22 16:05> Cranial nerves: Yes Equal, round and reactive pupils present <Roslyn Hart NC - Last Filed: 11/25/22 16:05> Cognition (Neuro): normal cognition <Roslyn Hart PA - Last Filed: 11/25/22 16:05> Motor exam (neuro): 5/5 motor strength present throughout <GAYLE Estevez - Last Filed: 11/25/22 16:05> Sensory Exam: Normal double simultaneous stimulation for sensation <GAYLE Estevez - Last Filed: 11/25/22 16:05> Coordination: [id number] test normal <GAYLE Estevez - Last Filed: 11/25/22 16:05> Extrem General: Yes normal to inspection, Yes full ROM and Yes capillary refill normal <GAYLE Estevez - Last Filed: 11/25/22 16:05> Psych Appearance: grossly normal <GAYLE Estevez - Last Filed: 11/25/22 16:05> Mental Status: mental status grossly normal <GAYLE Estevez - Last Filed: 11/25/22 16:05> Affect: normal affect <GAYLE Estevez - Last Filed: 11/25/22 16:05> Attitude: cooperative <GAYEL Estevez - Last Filed: 11/25/22 16:05> Thought process: Normal thought process present <GAYLE Estevez - Last Filed: 11/25/22 16:05> Thought content: Normal thought content present <GAYLE Estevez - Last Filed: 11/25/22 16:05> Insight: Good insight present (Psych) <GAYLE Estevez - Last Filed: 11/25/22 16:05> Course Course Course Narrative: 13:30 - RME - 31 yo male with history of gastritis who is presenting for evaluation of acute on chronic upper abdominal pain, started in 2008. Pain is in the epigastric area and he has it every day. Ran out of ranitidine and now he cannot eat because of the pain. No N/V/D. Mild epigastric tenderness, no RUQ tenderness. Will check basic labs, give GI cocktail and reassess. <GAYLE Aquino - Last Filed: 11/25/22 13:36> Medical Decision Making Medical Decision Making MDM Narrative: Patient is a 31 year old assigned male at with a history of gastritis presenting to the emergency department today with epigastric pain. Patient's physical exam was unremarkable. Patient's blood work was unremarkable. I explained my physical exam findings as well as all test results to the patient. I answered all questions asked by the patient. Patient received a GI cocktail from the [facility] provider which he stated helped his symptoms significantly. I stressed the importance of the patient taking his medication as prescribed. I stressed the importance of the patient following up with his primary care provider and a GI Specialist. I stressed the importance of the patient returning to the emergency department immediately if his symptoms were to worsen or if he were to develop any dizziness, shortness of breath, difficulty breathing, chest pain, blurry vision, loss of vision, nausea, vomiting, abdominal pain, fever, chills, back pain, or any other complaints. Patient verbalized agreement and understanding with this treatment plan and discharge. <GAYLE Estevez - Last Filed: 11/25/22 16:05> Differential Diagnosis Differential Diagnoses: The differential diagnosis associated with the presentation includes <GAYLE Estevez - Last Filed: 11/25/22 16:05> epigastric pain, gastric ulcer, gastritis <GAYLE Estevez - Last Filed: 11/25/22 16:05> Lab Data MDM Lab Attestation statement: I reviewed the patient's lab results. <GAYLE Estevez - Last Filed: 11/25/22 16:05> Result Diagrams: : 11/25/22 13:51 11/25/22 13:51 <GAYLE Aquino - Last Filed: 11/25/22 13:36> Labs: Lab Results 11/25/22 11/25/22 Range/Units 13:51 13:51 WBC 7.5 (4.8-10.8) X10*3/uL RBC 4.65 (4.60-5.80) X10*6/uL Hgb 14.4 (14.0-18.0) g/dl Hct 42.7 (42.0-52.0) % MCV 91.8 (80.0-98.0) fL MCH 31.0 (27.0-33.0) pg MCHC 33.7 (31.0-36.0) g/dl RDW 12.1 (11.0-16.0) % Plt Count 196 (160-400) X10*3/uL MPV 10.3 (9.4-12.4) fL Immature Gran % (Auto) 0.1 (0.0-0.4) % Neut % (Auto) 55.2 (45-73) % Lymph % (Auto) 33.2 (20-40) % Mccone % (Auto) 7.1 (2-11) % Eos % (Auto) 4.3 H (0-4) % Baso % (Auto) 0.1 (0-2) % Lymph # (Auto) 2.5 (1.2-4.9) X10*3/uL Mccone # (Auto) 0.5 (0.1-1.2) X10*3/uL Eos # (Auto) 0.3 (0.0-0.4) X10*3/uL Baso # (Auto) 0.0 (0.0-0.2) X10*3/uL Abs Immat Gran (auto) 0.01 (0.00-0.03) X10*3/uL Absolute Neuts (auto) 4.1 (2.0-8.3) x10*3/uL Absolute Nucleated RBC 0.000 (0.0-0.012) X10*3/uL Nucleated RBC % (auto) 0.0 (0.0-0.2) /100WBC Sodium 141 (135-145) mmol/L Potassium 4.5 (3.3-5.1) mmol/L Chloride 106 (96-108) mmol/L Carbon Dioxide 28 (22-29) mmol/L Anion Gap 12 (12-20) BUN 16 (9-16) mg/dL Creatinine 0.88 (0.5-1.4) mg/dL Estim Creat Clear Calc 110.2 Estimated GFR > 60 Random Glucose 97 (60-115) mg/dL Calcium 9.6 (8.4-10.2) mg/dL Magnesium 1.9 (1.6-2.6) mg/dL Total Bilirubin 0.5 (0.0-1.0) mg/dL Direct Bilirubin 0.2 (0.0-0.5) mg/dL AST 21 (5-37) U/L ALT 23 (0-40) U/L Alkaline Phosphatase 61 (39-117) U/L Total Protein 7.1 (6.5-8.0) g/dL Albumin 4.5 (3.5-5.0) g/dL Lipase 19 (8-78) U/L <GAYLE Aquino - Last Filed: 11/25/22 13:36> Lab Results 11/25/22 11/25/22 Range/Units 13:51 13:51 WBC 7.5 (4.8-10.8) X10*3/uL RBC 4.65 (4.60-5.80) X10*6/uL Hgb 14.4 (14.0-18.0) g/dl Hct 42.7 (42.0-52.0) % MCV 91.8 (80.0-98.0) fL MCH 31.0 (27.0-33.0) pg MCHC 33.7 (31.0-36.0) g/dl RDW 12.1 (11.0-16.0) % Plt Count 196 (160-400) X10*3/uL MPV 10.3 (9.4-12.4) fL Immature Gran % (Auto) 0.1 (0.0-0.4) % Neut % (Auto) 55.2 (45-73) % Lymph % (Auto) 33.2 (20-40) % Mccone % (Auto) 7.1 (2-11) % Eos % (Auto) 4.3 H (0-4) % Baso % (Auto) 0.1 (0-2) % Lymph # (Auto) 2.5 (1.2-4.9) X10*3/uL Mccone # (Auto) 0.5 (0.1-1.2) X10*3/uL Eos # (Auto) 0.3 (0.0-0.4) X10*3/uL Baso # (Auto) 0.0 (0.0-0.2) X10*3/uL Abs Immat Gran (auto) 0.01 (0.00-0.03) X10*3/uL Absolute Neuts (auto) 4.1 (2.0-8.3) x10*3/uL Absolute Nucleated RBC 0.000 (0.0-0.012) X10*3/uL Nucleated RBC % (auto) 0.0 (0.0-0.2) /100WBC Sodium 141 (135-145) mmol/L Potassium 4.5 (3.3-5.1) mmol/L Chloride 106 (96-108) mmol/L Carbon Dioxide 28 (22-29) mmol/L Anion Gap 12 (12-20) BUN 16 (9-16) mg/dL Creatinine 0.88 (0.5-1.4) mg/dL Estim Creat Clear Calc 110.2 Estimated GFR > 60 Random Glucose 97 (60-115) mg/dL Calcium 9.6 (8.4-10.2) mg/dL Magnesium 1.9 (1.6-2.6) mg/dL Total Bilirubin 0.5 (0.0-1.0) mg/dL Direct Bilirubin 0.2 (0.0-0.5) mg/dL AST 21 (5-37) U/L ALT 23 (0-40) U/L Alkaline Phosphatase 61 (39-117) U/L Total Protein 7.1 (6.5-8.0) g/dL Albumin 4.5 (3.5-5.0) g/dL Lipase 19 (8-78) U/L <GAYLE Estevez - Last Filed: 11/25/22 16:05> Medications Administered Discontinued Medications Generic Name Dose Route Start Last Admin Trade Name Freq PRN Reason Stop Dose Admin Al Hydroxide/Mg Hydroxide 30 ml 11/25/22 13:35 11/25/22 15:19 Magnesium Hydrox/Alum Hydrox 30 Ml Oral.Susp PO 11/25/22 13:36 30 ml ONCE ONE Administration Belladonna Alkaloids/Phenobarbital 10 ml 11/25/22 13:35 11/25/22 15:20 Phenobarb/Hyoscy/Atropine/Scop 10 Ml Elixir PO 11/25/22 13:36 10 ml ONCE ONE Administration Lidocaine HCl 15 ml 11/25/22 13:35 11/25/22 15:19 Lidocaine Hcl Viscous 2 % 15 Ml Solution MUCOUS MEM 11/25/22 13:36 15 ml ONCE ONE Administration <GAYLE Aquino - Last Filed: 11/25/22 13:36> Medications Administered Discontinued Medications Generic Name Dose Route Start Last Admin Trade Name Freq PRN Reason Stop Dose Admin Al Hydroxide/Mg Hydroxide 30 ml 11/25/22 13:35 11/25/22 15:19 Magnesium Hydrox/Alum Hydrox 30 Ml Oral.Susp PO 11/25/22 13:36 30 ml ONCE ONE Administration Belladonna Alkaloids/Phenobarbital 10 ml 11/25/22 13:35 11/25/22 15:20 Phenobarb/Hyoscy/Atropine/Scop 10 Ml Elixir PO 11/25/22 13:36 10 ml ONCE ONE Administration Lidocaine HCl 15 ml 11/25/22 13:35 11/25/22 15:19 Lidocaine Hcl Viscous 2 % 15 Ml Solution MUCOUS MEM 11/25/22 13:36 15 ml ONCE ONE Administration <GAYLE Estevez - Last Filed: 11/25/22 16:05> Discharge Plan Discharge Clinical Impression: Gastritis <GAYLE Aquino - Last Filed: 11/25/22 13:36> Patient Disposition: Home, Self-Care <GAYLE Aquino - Last Filed: 11/25/22 13:36> Instructions: Gastritis (ED) <GAYLE Aquino - Last Filed: 11/25/22 13:36> Additional Instructions: Follow up with your primary care provider and a GI specialist. Return to the emergency department immediately if your symptoms worsen or if you develop any dizziness, shortness of breath, difficulty breathing, chest pain, blurry vision, loss of vision, nausea, vomiting, abdominal pain, fever, chills, back pain, or any other complaints. <GAYLE Aquino - Last Filed: 11/25/22 13:36> Prescriptions: New omeprazole 40 mg capsule,delayed release(DR/EC) 40 mg PO DAILY Qty: 30 0RF Discontinued ibuprofen 800 mg tablet 800 mg PO Q8H PRN (Reason: pain) Qty: 14 0RF acetaminophen [Tylenol Extra Strength] 500 mg tablet 1,000 mg PO QID PRN (Reason: fever or pain) Qty: 14 0RF amoxicillin-pot clavulanate [Augmentin] 875-125 mg tablet 1 tab PO BID 14 Days Qty: 28 0RF oxycodone 5 mg tablet 5 mg PO BID PRN (Reason: pain) Qty: 10 0RF ibuprofen 800 mg tablet 800 mg PO Q8H PRN (Reason: pain) Qty: 14 0RF ibuprofen 800 mg tablet 800 mg PO Q8H PRN (Reason: pain) Qty: 14 0RF acetaminophen [Tylenol Extra Strength] 500 mg tablet 500 mg PO Q6H PRN (Reason: pain) Qty: 14 0RF oxycodone 5 mg tablet 5 mg PO BID PRN (Reason: pain) Qty: 14 0RF nitrofurantoin monohyd/m-cryst [Macrobid] 100 mg capsule 100 mg PO BEDTIME 14 Days Qty: 14 0RF Rx Instructions: must administer with a meal/food ibuprofen 800 mg tablet 800 mg PO Q8H PRN (Reason: pain) Qty: 30 0RF doxycycline hyclate 100 mg capsule 100 mg PO BID Qty: 14 0RF cephalexin 500 mg capsule 500 mg PO BID 7 Days Qty: 14 0RF ibuprofen 600 mg tablet 600 mg PO Q8H PRN (Reason: pain) Qty: 20 0RF cephalexin 500 mg capsule 500 mg PO QID 7 Days Qty: 28 0RF tramadol 50 mg tablet 50 mg PO BID PRN (Reason: pain) Qty: 20 0RF azithromycin 250 mg tablet See Rx Instructions .ROUTE .COMPLEX Qty: 6 0RF Rx Instructions: take 500 mg today (day 1), then 250 mg for 4 days (days 2-5) codeine-guaifenesin [Guaifenesin AC] 10-100 mg/5 mL liquid 5 ml PO Q6H PRN (Reason: cold symptoms) Qty: 120 0RF ondansetron 4 mg tablet,disintegrating 4 mg PO Q8H PRN (Reason: nausea and vomiting) Qty: 20 0RF omeprazole 20 mg capsule,delayed release(DR/EC) 20 mg PO DAILY Qty: 30 2RF ibuprofen 800 mg tablet 800 mg PO Q8H PRN (Reason: pain) Qty: 30 0RF jwddlveinjmxctc-byikjiafu-GC [Bromfed DM] 2-30-10 mg/5 mL syrup 7.5 ml PO Q4-6H PRN (Reason: cold symptoms) Qty: 200 0RF <GAYLE Aquino - Last Filed: 11/25/22 13:36> Referrals: [facility] [place] [facility] [Provider Group] (Call to establish and follow up with a GI specialist. ) Natalia Noble MD [Primary Care Provider] - <GAYLE Aquino - Last Filed: 11/25/22 13:36> Stand Alone Forms: Work/School Release <GAYLE Aquino - Last Filed: 11/25/22 13:36> Interventions: ED Discharge Assessment Last Done: 11/25/22 15:56 <GAYLE Aquino - Last Filed: 11/25/22 13:36> Discharge Date/Time: 11/25/22 15:57 <GAYLE Aquino - Last Filed: 11/25/22 13:36> Print Language: Uzbek <GAYLE Aquino - Last Filed: 11/25/22 13:36>
[2022-11-25 13:31] VITALS: BP 114/64; PULSE 69; RESP 16; TEMP 36.6; O2SAT 98; BMI 21.2
[2022-11-25 14:00] LABS: MANUAL DIFF FLAG NO
[2022-11-25 14:03] LABS: Basophils Percent Auto 0.1 % (0-2); Eosinophils Absolute Auto 0.3 X10*3/uL (0.0-0.4); Eosinophils Percent Auto 4.3 % (0-4); Hematocrit 42.7 % (42.0-52.0); Hemoglobin 14.4 g/dl (14.0-18.0); Imm Gran Abs Auto 0.01 X10*3/uL (0.00-0.03); Imm Gran Pct Auto 0.1 % (0.0-0.4); Lymphocytes Absolute Auto 2.5 X10*3/uL (1.2-4.9); Lymphocytes Percent Auto 33.2 % (20-40); Mean Corpuscular HGB Conc 33.7 g/dl (31.0-36.0); Mean Corpuscular Volume 91.8 fL (80.0-98.0); Mean Platelet Volume 10.3 fL (9.4-12.4); Monocytes Absolute Auto 0.5 X10*3/uL (0.1-1.2); Monocytes Percent Auto 7.1 % (2-11); Neutrophils Absolute Auto 4.1 x10*3/uL (2.0-8.3); Neutrophils Percent Auto 55.2 % (45-73); Platelet Count 196 X10*3/uL (160-400); Red Blood Count 4.65 X10*6/uL (4.60-5.80); Red Cell Distribution Width 12.1 % (11.0-16.0); White Blood Count 7.5 X10*3/uL (4.8-10.8)
[2022-11-25 14:20] LABS: Alanine Aminotransferase 23 U/L (0-40); Albumin Level 4.5 g/dL (3.5-5.0); Alkaline Phosphatase 61 U/L (39-117); Anion Gap 12 (12-20); Aspartate Amino Transferase 21 U/L (5-37); Bilirubin Direct 0.2 mg/dL (0.0-0.5); Bilirubin Total 0.5 mg/dL (0.0-1.0); Blood Urea Nitrogen 16 mg/dL (9-16); Calcium 9.6 mg/dL (8.4-10.2); Carbon Dioxide 28 mmol/L (22-29); Chloride 106 mmol/L (96-108); Creatinine Clr Calc Pharmacy 110.2; Estimated Glomerular Filt Rate > 60; Glucose Random 97 mg/dL (60-115); Lipase 19 U/L (8-78); Magnesium 1.9 mg/dL (1.6-2.6); Potassium 4.5 mmol/L (3.3-5.1); Sodium 141 mmol/L (135-145); Total Protein 7.1 g/dL (6.5-8.0)
[2022-11-25] MEDS: Lidocaine HCl Viscous 2 % 15 ML SOLUTION MUCOUS MEM (15:19)
[2022-11-25] MEDS: Magnesium Hydrox/Alum Hydrox 30 ML ORAL.SUSP PO (15:19)
[2022-11-25] MEDS: PHENobarb/Hyoscy/Atropine/Scop 10 ML ELIXIR PO (15:20)
== END 2022-11-25 15:57 | disposition home or self-care (01) ==
PROVIDERS: Physician Assistant; Emergency Provider Student in an Organized Health Care Education/Training Program; PCP Internal Medicine
DX: K29.70 Gastritis, unspecified, without bleeding (principal); R10.12 Left upper quadrant pain; Z79.899 Other long term (current) drug therapy
CPT/HCPCS: 36415; 80048; 80076; 83690; 83735; 85025; 99283

== ENCOUNTER 2022-12-25 07:06 | Emergency (ER) | payer OTHER, SELFPAY ==
--- NOTE | ~2022-12-25 | XR_ITS ---
EXAMINATION: XR KNEE, LEFT CLINICAL INFORMATION: Fall. Pain. COMPARISON: 02/02/2021 TECHNIQUE: Four views of the left knee. FINDINGS: No fracture or subluxation. Compartmental joint spaces are maintained. No joint effusion. Soft tissues are unremarkable. XR/XR knee LT 4V IMPRESSION: Normal left knee.
[2022-12-25 07:07] VITALS: BP 100/67; PULSE 80; RESP 18; TEMP 36.4; O2SAT 99; BMI 22.0
--- NOTE | 2022-12-25 07:47 | ED_ITS ---
[facility] - General Adult General Chief complaint: General Medical Stated complaint: l knee pain Time Seen by Provider: 12/25/22 07:22 Source: patient Mode of arrival: ambulatory History of Present Illness HPI narrative: 31-year-old male who states that on Wednesday he ?fell down 4 steps onto his left knee and now presents with complaints of persistent left knee pain at the superior medial portion but states that he has been able to bear weight. Related Data Previous Rx's Medication Instructions Recorded omeprazole 40 mg capsule,delayed 40 mg PO DAILY #30 caps 11/25/22 release Allergies Allergy/AdvReac Type Severity Reaction Status Date / Time No Known Allergies Allergy Verified 12/25/22 07:12 Review of Systems Review of Systems: Pertinent positives and negatives as stated in [facility] Past Medical History Source: nursing notes reviewed Medical History Gastritis No known health problems Social History Social History Patient Tobacco Use Status: Never used Tobacco Advance Directives: No Advance Directives Information Provided: No Physical Exam ED Vital Signs: Vital Signs - 24 hr 12/25/22 07:07 Temperature 97.5 F Pulse Rate 80 Respiratory Rate 18 Blood Pressure 100/67 Pulse Oximetry 99 Oxygen Delivery Method Room Air BMI result Body Mass Index 22.0 VITAL SIGNS: Reviewed. GENERAL: Well developed, well nourished, in no acute distress. HEAD: Normocephalic/atraumatic EYES: PERRLA, EOMI LUNGS: Normal breath sounds. No adventitious sounds or accessory muscle use. SpO2<99> CARDIOVASCULAR: Regular rate and rhythm without noted murmurs ABDOMEN: Soft, non-tender, non-distended with bowel sounds. MUSCULOSKELETAL: No tenderness, deformities; LEFT KNEE: No obvious deformity/erythema/induration/ecchymosis, on palpation there is a possibility of a mild effusion suprapatellar with tenderness on palpation at the medial aspect of the patellofemoral ligament, provocative testing is otherwise negative (anterior/posterior drawer, [place]) EXTREMITIES: No cyanosis, clubbing or edema. SKIN: Inspection of the skin reveals no rashes NEUROLOGIC: Alert and oriented x 4. Strength and sensation to light touch were grossly intact x 4. Medications Administered Discontinued Medications Generic Name Dose Route Start Last Admin Trade Name Freq PRN Reason Stop Dose Admin Acetaminophen 975 mg 12/25/22 07:48 12/25/22 07:59 Acetaminophen 325 Mg Tablet PO 12/25/22 07:49 975 mg ONCE ONE Administration Ibuprofen 400 mg 12/25/22 07:48 12/25/22 08:00 Ibuprofen 400 Mg Tablet PO 12/25/22 07:49 400 mg ONCE ONE Administration Medical Decision Making Medical Decision Making MDM Narrative: 31-year-old male with history and clinical presentation of mild left knee injury I have low clinical suspicion for meniscal/ACL/PCL injury and on review of patient's documentation he has injured this knee previously. In 2020. Will undergo x-ray left knee, combination analgesics, and apply Malcolm bandage in refer to work connection. Differential Diagnosis Differential Diagnoses: The differential diagnosis associated with the presentation includes Please see discussion above Radiology Impression Radiologist Impression: My interpretation is in agreement with radiology impression of the imaging studies. External Record Review External record reviewed: Outpatient record and Prior outpatient labs Discharge Plan Discharge Clinical Impression: Knee pain, left Patient Disposition: Home, Self-Care Instructions: Knee Pain (ED) Additional Instructions: 1. Recommend combination Tylenol/ibuprofen as needed for pain control. 2. Recommend use of Malcolm wrap while ambulating. 3. Recommend follow-up with your primary care provider, a referral is being provided to you for work connection. Return to the ER for any worsening symptoms. Prescriptions: No Action omeprazole 40 mg capsule,delayed release(DR/EC) 40 mg PO DAILY Qty: 30 0RF Referrals: [facility] [Outside] (Left knee injury on 12/21) Natalia Noble MD [Primary Care Provider] -
[2022-12-25] MEDS: Acetaminophen 325 MG TABLET 975 MG PO (07:59)
[2022-12-25] MEDS: Ibuprofen 400 MG TABLET PO (08:00)
== END 2022-12-25 08:45 | disposition home or self-care (01) ==
PROVIDERS: Emergency Provider Student in an Organized Health Care Education/Training Program; PCP Internal Medicine
DX: M25.562 Pain in left knee (principal)
CPT/HCPCS: 73564; 99283

== ENCOUNTER 2023-03-10 06:38 | Emergency (ER) | payer OTHER, SELFPAY ==
[2023-03-10 06:48] VITALS: BP 118/68; PULSE 69; RESP 16; TEMP 36.7; O2SAT 98; BMI 21.9
[2023-03-10 07:28] LABS: MANUAL DIFF FLAG NO
[2023-03-10 07:34] LABS: Basophils Percent Auto 0.2 % (0-2); Eosinophils Absolute Auto 0.3 X10*3/uL (0.0-0.4); Eosinophils Percent Auto 4.4 % (0-4); Hematocrit 42.2 % (42.0-52.0); Imm Gran Abs Auto 0.02 X10*3/uL (0.00-0.03); Imm Gran Pct Auto 0.3 % (0.0-0.4); Lymphocytes Absolute Auto 1.5 X10*3/uL (1.2-4.9); Mean Corpuscular HGB Conc 33.2 g/dl (31.0-36.0); Mean Corpuscular Hemoglobin 30.1 pg (27.0-33.0); Mean Corpuscular Volume 90.8 fL (80.0-98.0); Mean Platelet Volume 9.6 fL (9.4-12.4); Monocytes Absolute Auto 0.4 X10*3/uL (0.1-1.2); Monocytes Percent Auto 6.3 % (2-11); Neutrophils Absolute Auto 3.9 x10*3/uL (2.0-8.3); Neutrophils Percent Auto 64.8 % (45-73); Platelet Count 196 X10*3/uL (160-400); Red Blood Count 4.65 X10*6/uL (4.60-5.80); Red Cell Distribution Width 12.3 % (11.0-16.0); White Blood Count 6.1 X10*3/uL (4.8-10.8)
[2023-03-10 07:36] VITALS: BP 105/64; PULSE 63; RESP 16; O2SAT 99
--- NOTE | 2023-03-10 07:44 | PC.NURSE ---
Pt reporting 2 months of n/v first thing in the morning when he wakes up, does improve when he is finally able to eat something. He is a cx mar. smoker. Denies any other symptoms besides 8lb weight loss in the last 2 months
[2023-03-10 07:46] LABS: Alanine Aminotransferase 25 U/L (0-40); Albumin Level 4.1 g/dL (3.5-5.0); Alkaline Phosphatase 53 U/L (39-117); Anion Gap 11 (12-20); Aspartate Amino Transferase 25 U/L (5-37); Bilirubin Total 0.4 mg/dL (0.0-1.0); Blood Urea Nitrogen 17 mg/dL (9-16); Calcium 8.8 mg/dL (8.4-10.2); Carbon Dioxide 25 mmol/L (22-29); Chloride 109 mmol/L (96-108); Creatinine Clr Calc Pharmacy 124.8; Estimated Glomerular Filt Rate > 60; Glucose Random 95 mg/dL (60-115); Lipase 72 U/L (8-78); Potassium 4.3 mmol/L (3.3-5.1); Sodium 141 mmol/L (135-145); Total Protein 6.5 g/dL (6.5-8.0)
[2023-03-10] MEDS: Magnesium Hydrox/Alum Hydrox 30 ML ORAL.SUSP PO (08:27)
[2023-03-10] MEDS: Lidocaine HCl Viscous 2 % 15 ML SOLUTION MUCOUS MEM (08:27)
[2023-03-10] MEDS: PHENobarb/Hyoscy/Atropine/Scop 10 ML ELIXIR PO (08:28)
--- NOTE | 2023-03-10 08:41 | ED_ITS ---
HPI - Abdominal Pain General Chief Complaint: Abdominal Pain Stated Complaint: Abd pain Time Seen by Provider: 03/10/23 07:51 Source: patient and RN notes reviewed Mode of arrival: ambulatory Limitations: no limitations History of Present Illness HPI narrative: This is a 32-year-old male, with a past medical history of gastritis, presents to the emergency department with complaints of epigastric pain x1 week. Patient reports that 1 week ago he developed a squeezing epigastric pain that is constant but does not radiate. Patient reports that his abdominal pain worsens when he does not eat. He denies any fevers or chills. Denies nausea, diarrhea, dysuria, urinary frequency or urgency constipation or diarrhea. He reports that he vomited once yesterday and once today. Reports he has a history of gastritis and this feels like his typical gastric symptoms. He reports that he takes omeprazole only when he feels the pain, he last dose 2 weeks ago. MD elicited complaint: abdominal pain Pertinent past history: gastritis Onset (ago): week(s) Pain Consistency: constant Location: none Severity: moderate Quality: cramping Radiation: none Migration to: no migration Exacerbating factors: nothing Relieving factors: eating Associated symptoms: vomiting Related Data Previous Rx's Medication Instructions Recorded omeprazole 40 mg capsule,delayed 40 mg PO DAILY #30 caps 11/25/22 release famotidine 20 mg tablet (Pepcid AC 20 mg PO BID 6 weeks #84 tabs 03/10/23 Maximum Strength) Allergies Allergy/AdvReac Type Severity Reaction Status Date / Time No Known Allergies Allergy Verified 12/25/22 07:12 Review of Systems Review of Systems Yes all other systems are reviewed and are negative [facility] Past Medical History Medical History Gastritis No known health problems Social History Social History Alcohol intake: never Patient Tobacco Use Status: Never used Tobacco Smoked in Last 30 Days: No Substance Use Type: Marijuana Substance Use Frequency: Daily Advance Directives: No Physical Exam ED Vital Signs: Vital Signs - 24 hr 03/10/23 06:48 03/10/23 07:36 Temperature 98.1 F Pulse Rate 69 63 Respiratory Rate 16 16 Blood Pressure 118/68 105/64 Pulse Oximetry 98 99 Oxygen Delivery Method Room Air Room Air BMI result Body Mass Index 21.9 Appearance: Alert. Oriented X3. No acute distress. Eyes: Pupils equal, round and reactive to light. EOMI ENT: Pharynx normal. Moist mucous membranes. No tonsillar hypertrophy or exudates, uvula is midline Neck: Normal inspection. Neck supple. CVS: Normal heart rate and rhythm. Pulses normal. S1S2 regular. Respiratory: No respiratory distress. Breath sounds normal. Is clear to auscultation bilaterally Abdomen: Abdomen is soft, with mild tenderness to palpation in the epigastrium. +BS x4. Negative Flores sign. Skin: Skin warm and dry. Normal skin color. Normal skin turgor. No rashes. Extremities: No lower extremity edema. Neuro: Oriented X 3. No motor deficit. No sensory deficit. CN II-XII intact. Course Reevaluation(s) Reevaluation #1: Patient's symptoms completely resolved after receiving GI cocktail and would like to be discharged home. Discussed the importance of dietary modifications to help with his symptoms. He admits that he drinks many red bulls throughout the day. Advised that this can be a precipitating factor to his symptoms. Discharged patient on Pepcid, given referral to GI specialist as this is not his 1st emergency department visit for these symptoms and they may be able to better manage his symptoms. Advised to return with any new or worsening symptoms. Patient understands and agrees with plan. Patient stable for discharge. Time: 10:00 Medical Decision Making Medical Decision Making [facility] Narrative: 32-year-old male, with a past medical history of gastritis, presenting to the emergency department today with gastric pain x 1 week. Patient is afebrile, vital signs within normal limits. Has tenderness to palpation in the epigastrium, abdomen is otherwise soft nontender. No leukocytosis, liver function panel within normal limits. Plan: Labs, patient to be treated with GI cocktail. Differential Diagnosis Differential Diagnoses: The differential diagnosis associated with the presentation includes Gastritis, gastroenteritis, cholecystitis-less likely, GERD Lab Data [facility] Lab Attestation statement: I reviewed the patient's lab results. 03/10/23 07:25 03/10/23 07:25 Labs: Lab Results 03/10/23 03/10/23 Range/Units 07:25 07:25 WBC 6.1 (4.8-10.8) X10*3/uL RBC 4.65 (4.60-5.80) X10*6/uL Hgb 14.0 (14.0-18.0) g/dl Hct 42.2 (42.0-52.0) % MCV 90.8 (80.0-98.0) fL MCH 30.1 (27.0-33.0) pg MCHC 33.2 (31.0-36.0) g/dl RDW 12.3 (11.0-16.0) % Plt Count 196 (160-400) X10*3/uL MPV 9.6 (9.4-12.4) fL Immature Gran % (Auto) 0.3 (0.0-0.4) % Neut % (Auto) 64.8 (45-73) % Lymph % (Auto) 24.0 (20-40) % Camas % (Auto) 6.3 (2-11) % Eos % (Auto) 4.4 H (0-4) % Baso % (Auto) 0.2 (0-2) % Lymph # (Auto) 1.5 (1.2-4.9) X10*3/uL [place] # (Auto) 0.4 (0.1-1.2) X10*3/uL Eos # (Auto) 0.3 (0.0-0.4) X10*3/uL Baso # (Auto) 0.0 (0.0-0.2) X10*3/uL Abs Immat Gran (auto) 0.02 (0.00-0.03) X10*3/uL Absolute Neuts (auto) 3.9 (2.0-8.3) x10*3/uL Absolute Nucleated RBC 0.000 (0.0-0.012) X10*3/uL Nucleated RBC % (auto) 0.0 (0.0-0.2) /100WBC Sodium 141 (135-145) mmol/L Potassium 4.3 (3.3-5.1) mmol/L Chloride 109 H (96-108) mmol/L Carbon Dioxide 25 (22-29) mmol/L Anion Gap 11 L (12-20) BUN 17 H (9-16) mg/dL Creatinine 0.77 (0.5-1.4) mg/dL Estim Creat Clear Calc 124.8 Estimated GFR > 60 Random Glucose 95 (60-115) mg/dL Calcium 8.8 D (8.4-10.2) mg/dL Total Bilirubin 0.4 (0.0-1.0) mg/dL AST 25 (5-37) U/L ALT 25 (0-40) U/L Alkaline Phosphatase 53 (39-117) U/L Total Protein 6.5 (6.5-8.0) g/dL Albumin 4.1 (3.5-5.0) g/dL Lipase 72 (8-78) U/L Medications Administered Discontinued Medications Generic Name Dose Route Start Last Admin Trade Name Freq PRN Reason Stop Dose Admin Al Hydroxide/Mg Hydroxide 30 ml 03/10/23 08:12 03/10/23 08:27 Magnesium Hydrox/Alum Hydrox 30 Ml Oral.Susp PO 03/10/23 08:13 30 ml ONCE ONE Administration Belladonna Alkaloids/Phenobarbital 10 ml 03/10/23 08:12 03/10/23 08:28 Phenobarb/Hyoscy/Atropine/Scop 10 Ml Elixir PO 03/10/23 08:13 10 ml ONCE ONE Administration Lidocaine HCl 15 ml 03/10/23 08:12 03/10/23 08:27 Lidocaine Hcl Viscous 2 % 15 Ml Solution MUCOUS MEM 03/10/23 08:13 15 ml ONCE ONE Administration Discharge Plan Discharge Clinical Impression: Abdominal pain, Gastritis Patient Disposition: Home, Self-Care Instructions: Gastritis (ED), Diet for Stomach Ulcers and Gastritis (ED), Abdominal Pain (ED) Additional Instructions: Follow-up with your primary care physician and GI specialist. I have given you a referral to a GI specialist, call today to make an appointment. Avoid spicy or fried food, NSAIDs (ibuprofen, Naprosyn), Red Bull, or excessive caffeine intake, as this can worsen your symptoms. Take prescribed medications as directed. I also recommend using Antacid medications over the counter such as Tums as this may help with your symptoms. If you develop any new or worsening symptoms please return for re-evaluation. Prescriptions: New famotidine [Pepcid AC Maximum Strength] 20 mg tablet 20 mg PO BID 42 Days Qty: 84 0RF No Action omeprazole 40 mg capsule,delayed release(DR/EC) 40 mg PO DAILY Qty: 30 0RF Referrals: [facility] [Provider Group] Interventions: ED Discharge Assessment Last Done: 03/10/23 10:11 Discharge Date/Time: 03/10/23 10:11
== END 2023-03-10 10:11 | disposition home or self-care (01) ==
PROVIDERS: Physician Assistant Medical; Emergency Provider Emergency Medicine
DX: R10.13 Epigastric pain (principal); K29.70 Gastritis, unspecified, without bleeding
CPT/HCPCS: 36415; 80053; 83690; 85025; 99283; 99284

== ENCOUNTER 2023-06-04 08:12 | Emergency (ER) | payer OTHER, SELFPAY ==
[2023-06-04 08:17] VITALS: BP 118/64; PULSE 79; RESP 17; TEMP 36.6; O2SAT 98; BMI 21.3
[2023-06-04 08:38] VITALS: BP 113/69; PULSE 78; RESP 16; TEMP 36.8; O2SAT 98
--- NOTE | 2023-06-04 08:38 | ED.EYEPROB ---
HPI - Eye Problem General Chief complaint: Eye Problems Stated complaint: L eye swelling Time Seen by Provider: 06/04/23 08:31 Source: patient, RN notes reviewed and old records reviewed Mode of arrival: ambulatory History of Present Illness HPI Narrative: 32-year-old male with no significant past medical history presenting to the ED complaining of foreign body sensation to left eye s/p using forklift at work yesterday and feeling something go into eye. Denies direct injury/trauma or fall. Patient denies were in glasses or contacts, states was not wearing safety glasses at the time. Denies blurry vision, double vision, visual loss, nausea/vomiting MD chief complaint: foreign body Onset (ago): day(s) Related Data Previous Rx's Medication Instructions Recorded omeprazole 40 mg capsule,delayed 40 mg PO DAILY #30 caps 11/25/22 release famotidine 20 mg tablet (Pepcid AC 20 mg PO BID 6 weeks #84 tabs 03/10/23 Maximum Strength) erythromycin 5 mg/gram (0.5 %) eye 0.5 inch ophthalmic-Left QID 7 06/04/23 ointment days #3.5 grams Allergies Allergy/AdvReac Type Severity Reaction Status Date / Time No Known Allergies Allergy Verified 06/04/23 08:13 Review of Systems Review of Systems: Constitutional: No Fever, No Chills, No Night Sweats, No Fatigue, No Malaise ENT/Mouth: No Ear Pain, No Nasal Congestion, No sore throat, No Rhinorrhea, No Swallowing Difficulty Eyes: + Eye Pain, No Swelling, + Redness, + Foreign Body, No Discharge, No Vision Changes Cardiovascular: No Chest Pain, No SOB Respiratory: No Cough, No Sputum, No Dyspnea Gastrointestinal: No Nausea, No Vomiting, No Diarrhea, No Constipation, No Abdominal pain Musculoskeletal: No joint pain, No Myalgias, No Joint Swelling Skin: No Skin Lesions, No rash Neuro: No Weakness, No Numbness, No Loss of Consciousness, No Dizziness, No Headache Yes all other systems are reviewed and are negative Constitutional: Constitutional: Reports as per HPI Eyes: Eyes: Reports photophobia (left) [facility] Past Medical History Attestation statement: The following information was validated with the patient. Source: old records reviewed Medical History Gastritis No known health problems Social History Social History Alcohol intake: never Patient Tobacco Use Status: Never used Tobacco Smoked in Last 30 Days: Yes Use of substances other than those prescribed or required for medical reasons: Yes Substance Use Type: Marijuana Advance Directives: No Physical Exam Vital Signs: Vital Signs: Last Vital Signs Temp 98.2 F 06/04/23 08:38 Pulse 78 06/04/23 08:38 Resp 16 06/04/23 08:38 BP 113/69 06/04/23 08:38 Pulse Ox 98 06/04/23 08:38 O2 Del Method Room Air 06/04/23 08:38 BMI result Body Mass Index 21.3 Const: General: cooperative, healthy appearing and no acute distress Orientation/consciousness: patient oriented x3 Limitations: no limitations HEENT: Head: Yes normal to inspection and Yes atraumatic Ears: hearing grossly normal bilaterally General nose exam: Normal external nose present Face and sinus: Yes normal facial exam Eyes: General: appearance normal, both eyes and all related structures Visual Hackett: normal visual hackett by confrontation Alignment and Position: alignment normal Periorbital: periorbital findings normal Eyelids: Yes eyelids normal Conjunctivae: conjunctival abnormal left conjunctival injection; without discharge and without subconjunctival hemmorhages Corneas: corneas abnormal on the left fluorescein used and foreign body metallic, with rust ring present and at clock position (5) Pupils: Equal, round and reactive pupils present EOM: EOMs intact bilaterally Direct Ophthalmoscopy: normal light reflex and photophobia (left) Neck: Neck: Yes normal visual inspection and Yes no meningeal signs Resp: Effort & Inspection: normal respiratory effort and no respiratory distress Cardio: Rate: regular rate Skin: Rashes: no rashes Wounds: no wounds Neuro: General: patient oriented x3, tone normal and no meningeal signs Cranial nerves: Yes Equal, round and reactive pupils present Gait exam (Neuro): Normal gait present Extrem: General: Yes normal to inspection Course Course Course Narrative: -Dr. Lal office cannot fit patient in today, will refer him outpatient Results discussed with patient including worrisome signs and symptoms and strict return precautions, and when to return to the emergency department. They verbalized understanding and feel safe for discharge at this time. Medications Administered Discontinued Medications Generic Name Dose Route Start Last Admin Trade Name Walt PRN Reason Stop Dose Admin Fluorescein Sodium 1 strip 06/04/23 08:31 06/04/23 08:44 Fluorescein Sodium Strip EYE-LEFT 06/04/23 08:32 1 strip ONCE ONE Administration Tetracaine HCl 1 drop 06/04/23 08:31 06/04/23 08:44 Tetracaine Hcl/Pf 0.5% Oph Dayanna 4 Ml Drops EYE-LEFT 06/04/23 08:32 1 drop ONCE ONE Administration Medical Decision Making Medical Decision Making MDM Narrative: 32-year-old male with no significant past medical history presenting to the ED complaining of foreign body sensation to left eye s/p using forklift at work yesterday and feeling something go into eye. On exam vital signs stable, NAD, nontoxic appearing, foreign body appreciated to left eye at 05:00 o'clock position, no fluorescein uptake, no evidence of globe rupture, diffuse conjunctival injection noted. No appreciable ulcerations or dendritic lesions. EOMs intact without discomfort or entrapment. Foreign body removed with Q-tip, residual rust ring appreciated Plan: Topical erythromycin, ophthalmology follow-up. Will contact Dr. Ospina's office to see if he can see patient today Results discussed with patient including worrisome signs and symptoms and strict return precautions, and when to return to the emergency department. They verbalized understanding and feel safe for discharge at this time. Differential Diagnosis Differential Diagnoses: The differential diagnosis associated with the presentation includes As above Consult Healthcare Provider Management of the patient was discussed with: City Planner External Record Review External record reviewed: Inpatient record, Office record, Outpatient record, Prior outpatient labs, Prior outpatient radiology, Primary care record and Outside ED record Tests considered The following testing was considered but not selected: As above Prescription Management I considered prescription management with: Pain Medication and Antibiotic Procedures FB Removal Eye Location: eye (L) Topical anesthetic used: tetracaine Foreign body: metal Evidence of corneal penetration: No Technique: cotton tip swab Procedure performed under: direct visualization with magnification Post-procedure medication: ophthalmic antibiotic Patient tolerated procedure: well and no complications Complications: residual rust ring Discharge Plan Discharge Clinical Impression: Metal foreign body in eye region, Corneal rust ring of left eye Patient Disposition: Home, Self-Care Instructions: Eye Foreign Body (ED) Additional Instructions: We removed the metal foreign body from her eye however there is a residual rust ring Erythromycin ophthalmic ointment as a topical antibiotic please apply as prescribed YOU NEED TO FOLLOW-UP WITH AN [facility]ER SOON POSSIBLE If he developed vision loss, persistent eye discharge, unbearable pain return to the Prescriptions: New erythromycin 5 mg/gram (0.5 %) ointment 0.5 inch ophthalmic-Left QID 7 Days Qty: 3.5 0RF No Action omeprazole 40 mg capsule,delayed release(DR/EC) 40 mg PO DAILY Qty: 30 0RF famotidine [Pepcid AC Maximum Strength] 20 mg tablet 20 mg PO BID 42 Days Qty: 84 0RF Referrals: Ronal Ospina [Physician] - 2 days Stand Alone Forms: Work/School Release Interventions: ED Discharge Assessment Last Done: 06/04/23 11:20 Discharge Date/Time: 06/04/23 11:20
--- NOTE | 2023-06-04 08:40 | PC.NURSE ---
a&ox3, vss, pt states that he was at work yesterday and it feels like something got in his left eye - states that it feels like there are rocks in his eye, denies wearing glasses/contacts regularly, provider bedside performing assessment/asking questions, call duong placed within reach, will continue to monitor.
--- NOTE | 2023-06-04 08:45 | PC.NURSE ---
fluorescein and tetracaine placed bedside for provider to administer.
== END 2023-06-04 11:20 | disposition home or self-care (01) ==
PROVIDERS: Emergency Provider Emergency Medicine Emergency Medical Services
DX: T15.02XA Foreign body in cornea, left eye, initial encounter (principal); Z79.899 Other long term (current) drug therapy
CPT/HCPCS: 65222; 99283; 99284

== ENCOUNTER 2023-07-08 07:25 | Emergency (ER) | payer OTHER, SELFPAY ==
[2023-07-08 07:37] VITALS: BP 116/66; PULSE 69; RESP 18; TEMP 36.5; O2SAT 98; BMI 21.0
[2023-07-08 08:38] VITALS: BP 113/56; PULSE 61; RESP 16; TEMP 36.8; O2SAT 99
--- NOTE | 2023-07-08 08:50 | ED_ITS ---
HPI - General Adult General Chief complaint: General Medical Stated complaint: R knee pain Time Seen by Provider: 07/08/23 07:39 Source: patient Mode of arrival: ambulatory History of Present Illness HPI narrative: 32-year-old male with acute on chronic knee pain, no acute events leading up to this and reports some medial knee pain and reports swelling on Wednesday that has resolved, but still having pain in that area which worsens on climbing stairs. Related Data Previous Rx's Medication Instructions Recorded omeprazole 40 mg capsule,delayed 40 mg PO DAILY #30 caps 11/25/22 release famotidine 20 mg tablet (Pepcid AC 20 mg PO BID 6 weeks #84 tabs 03/10/23 Maximum Strength) erythromycin 5 mg/gram (0.5 %) eye 0.5 inch ophthalmic-Left QID 7 06/04/23 ointment days #3.5 grams Allergies Allergy/AdvReac Type Severity Reaction Status Date / Time No Known Allergies Allergy Verified 06/04/23 08:13 Review of Systems Review of Systems: Pertinent positives and negatives as stated in HPI [facility] Past Medical History Source: nursing notes reviewed Medical History Gastritis No known health problems Social History Social History Alcohol intake: never Patient Tobacco Use Status: Never used Tobacco Substance Use Type: Marijuana Physical Exam ED Vital Signs: Vital Signs - 24 hr 07/08/23 07:37 07/08/23 08:38 Temperature 97.7 F 98.3 F Pulse Rate 69 61 Respiratory Rate 18 16 Blood Pressure 116/66 113/56 L Pulse Oximetry 98 99 Oxygen Delivery Method Room Air Room Air BMI result Body Mass Index 21.0 VITAL SIGNS: Reviewed. GENERAL: Well developed, well nourished, in no acute distress. HEAD: Normocephalic/atraumatic EYES: PERRLA, EOMI EARS: Ext canals without abnormality NOSE: Nares patent bilateral OROPHARYNX: no oral lesions noted, posterior pharynx clear NECK: Supple, no adenopathy LUNGS: Normal breath sounds. No adventitious sounds or accessory muscle use. SpO2<99> CARDIOVASCULAR: Regular rate and rhythm without noted murmurs ABDOMEN: Soft, non-tender, non-distended with bowel sounds. MUSCULOSKELETAL: No tenderness, deformities, or effusions noted on gross inspection. EXTREMITIES: No cyanosis, clubbing or edema. RIGHT KNEE: No deformity, no fluctuance, no erythema or induration, provocative testing is negative. SKIN: Inspection of the skin reveals no rashes NEUROLOGIC: Alert and oriented x 4. Strength and sensation to light touch were grossly intact x 4. Medical Decision Making Medical Decision Making MDM Narrative: 32-year-old male with atraumatic knee pain, did have swelling on Wednesday that his completely resolved, there is no erythema or induration and provocative testing is negative for evidence of ACL/PCL/meniscal injuries. There is no fluctuance at this time. 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 Discharge Plan Discharge Clinical Impression: Chronic knee pain Patient Disposition: Home, Self-Care Instructions: How to Use an Elastic Bandage (ED), Knee Pain (ED) Additional Instructions: 1. Recommend compression of the right knee, please follow-up at [facility] today, ice and elevation when possible and [id number] Tylenol/ibuprofen as needed for pain control. Return to the ER for any worsening symptoms. Prescriptions: No Action omeprazole 40 mg capsule,delayed release(DR/EC) 40 mg PO DAILY Qty: 30 0RF famotidine [Pepcid AC Maximum Strength] 20 mg tablet 20 mg PO BID 42 Days Qty: 84 0RF erythromycin 5 mg/gram (0.5 %) ointment 0.5 inch ophthalmic-Left QID 7 Days Qty: 3.5 0RF Referrals: [facility] [Provider Group] Aria Jaquez MD [Primary Care Provider] -
== END 2023-07-08 09:05 | disposition home or self-care (01) ==
PROVIDERS: Emergency Provider Student in an Organized Health Care Education/Training Program; PCP Internal Medicine
DX: M25.561 Pain in right knee (principal); Z79.899 Other long term (current) drug therapy
CPT/HCPCS: 99282; 99284

== ENCOUNTER 2024-03-13 07:09 | Emergency (ER) | payer OTHER, SELFPAY ==
[2024-03-13 07:25] VITALS: BP 116/49; PULSE 71; RESP 16; TEMP 36.7; O2SAT 98; BMI 22.6
[2024-03-13 07:37] LABS: MANUAL DIFF FLAG NO
[2024-03-13 07:42] LABS: Basophils Percent Auto 0.3 % (0-2); Eosinophils Absolute Auto 0.3 X10*3/uL (0.0-0.4); Eosinophils Percent Auto 5.1 % (0-4); Hematocrit 42.8 % (42.0-52.0); Hemoglobin 14.1 g/dl (14.0-18.0); Imm Gran Abs Auto 0.02 X10*3/uL (0.00-0.03); Imm Gran Pct Auto 0.3 % (0.0-0.4); Lymphocytes Absolute Auto 1.8 X10*3/uL (1.2-4.9); Lymphocytes Percent Auto 26.8 % (20-40); Mean Corpuscular HGB Conc 32.9 g/dl (31.0-36.0); Mean Corpuscular Hemoglobin 30.6 pg (27.0-33.0); Mean Corpuscular Volume 92.8 fL (80.0-98.0); Mean Platelet Volume 9.8 fL (9.4-12.4); Monocytes Absolute Auto 0.5 X10*3/uL (0.1-1.2); Neutrophils Percent Auto 60.5 % (45-73); Platelet Count 191 X10*3/uL (160-400); Red Blood Count 4.61 X10*6/uL (4.60-5.80); Red Cell Distribution Width 12.3 % (11.0-16.0); White Blood Count 6.5 X10*3/uL (4.8-10.8)
[2024-03-13 07:53] LABS: Alanine Aminotransferase 30 U/L (0-40); Alkaline Phosphatase 61 U/L (39-117); Anion Gap 11 (12-20); Aspartate Amino Transferase 23 U/L (5-37); Bilirubin Direct < 0.2 mg/dL (0.0-0.5); Bilirubin Total 0.2 mg/dL (0.0-1.0); Blood Urea Nitrogen 8 mg/dL (9-16); Calcium 9.4 mg/dL (8.4-10.2); Carbon Dioxide 28 mmol/L (22-29); Chloride 108 mmol/L (96-108); Creatinine Clr Calc Pharmacy 123.4; Estimated Glomerular Filt Rate > 60; Glucose Random 105 mg/dL (60-115); Lipase 38 U/L (8-78); Potassium 4.2 mmol/L (3.3-5.1); Sodium 143 mmol/L (135-145)
--- NOTE | 2024-03-13 09:33 | ED_ITS ---
HPI - Abdominal Pain General Chief Complaint: Abdominal Pain Stated Complaint: Abd pain Time Seen by Provider: 03/13/24 09:28 Source: patient and old records reviewed Mode of arrival: ambulatory Limitations: no limitations History of Present Illness HPI narrative: 33 yo male with PMH of gastritis last week intermittent epigastric pain and AM vomiting no known triggers does not take his PPI regularly but states the omeprazole never worked for him anyways. He has no black or bloody stools. Will wake up in the AM and vomit. He states our GI cocktail always helps him. MD elicited complaint: abdominal pain Pertinent past history: gastritis Onset (ago): week(s) (1) Pain Consistency: intermittent Location: epigastric Severity: moderate Quality: burning Radiation: none Migration to: no migration Exacerbating factors: eating Relieving factors: medication Context: history of similar episodes Associated symptoms: nausea and vomiting Related Data Previous Rx's ?Medication ?Instructions ?Recorded omeprazole 40 mg capsule,delayed 40 mg PO DAILY #30 caps 11/25/22 release famotidine 20 mg tablet (Pepcid AC 20 mg PO BID 6 weeks #84 tabs 03/10/23 Maximum Strength) erythromycin 5 mg/gram (0.5 %) eye 0.5 inch ophthalmic-Left QID 7 06/04/23 ointment days #3.5 grams ondansetron 4 mg disintegrating 4 mg PO Q8H PRN nausea and 03/13/24 tablet vomiting #20 tabs pantoprazole 40 mg tablet,delayed 40 mg PO DAILY #30 tabs 03/13/24 release Allergies Allergy/AdvReac Type Severity Reaction Status Date / Time No Known Allergies Allergy Verified 03/13/24 07:27 Review of Systems Review of Systems Constitutional : No Weight loss, No Fever, No Chills ENT/Mouth : No sore throat, No Rhinorrhea Eyes: No Swelling, No Redness Cardiovascular : No Chest Pain, No SOB, NoEdema Respiratory : No Cough, No Sputum, No Wheezing Gastrointestinal : Positive Nausea, Positive Vomiting, no Diarrhea, positive abdominal Pain, No Hematochezia, No Melena Genitourinary : No Dysuria, No Urinary Frequency, No Hematuria, No Urgency Musculoskeletal : No joint pain, No Myalgias, No Joint Swelling Skin : No Skin Lesions, No rash Neuro : No Weakness, No Numbness, No Dizziness, No Headache Psych : No Anxiety/Panic, No Depression Heme/Lymph: No Bruising, No Lymphadenopathy Endocrine : No Polyuria, No Polydipsia All other systems reviewed and are negative. [facility] Past Medical History Attestation statement: The following information was validated with the patient. Source: old records reviewed Medical History Gastritis No known health problems Social History Social History Alcohol intake: never Patient Tobacco Use Status: Never used Tobacco Substance Use Type: Marijuana Physical Exam ED Vital Signs: Vital Signs - 24 hr 03/13/24 07:25 Temperature 98.1 F Pulse Rate 71 Respiratory Rate 16 Blood Pressure 116/49 L Pulse Oximetry 98 Oxygen Delivery Method Room Air BMI result Body Mass Index 22.6 Appearance: Alert. Oriented X3. No acute distress. Eyes: Pupils equal, round and reactive to light. ENT: Pharynx normal. Neck: Normal inspection. Neck supple. CVS: Normal heart rate and rhythm. Pulses normal. Respiratory: No respiratory distress. Breath sounds normal. Abdomen: Soft and nontender. Skin: Skin warm and dry. Normal skin color. Normal skin turgor. Extremities: No lower extremity edema. No calf ttp Neuro: Oriented X 3. No motor deficit. No sensory deficit. Medical Decision Making Medical Decision Making [facility] Narrative: 33 yo male with PMH of gastritis intemrittent bouts does not have GI doctor here he has no GIB symptoms he has benign abdomen labs are stable VS are stable. He has hx of same and is not compliance with PPI because he feels omeprazole makes things worse at this time will switch to pantoprazole and give GI cocktail and refer to GI team here for further management Differential Diagnosis Differential Diagnoses: The differential diagnosis associated with the presentation includes gastritis, PUD, h pylori Admission/Observation Consideration of admission/observation: Escalation of care including admission/observation considered labs reassuring stable for DC Lab Data [facility] Lab Attestation statement: I reviewed the patient's lab results. 03/13/24 07:34 03/13/24 07:33 Labs: Lab Results 03/13/24 03/13/24 Range/Units 07:33 07:34 WBC 6.5 (4.8-10.8) X10*3/uL RBC 4.61 (4.60-5.80) X10*6/uL Hgb 14.1 (14.0-18.0) g/dl Hct 42.8 (42.0-52.0) % MCV 92.8 (80.0-98.0) fL MCH 30.6 (27.0-33.0) pg MCHC 32.9 (31.0-36.0) g/dl RDW 12.3 (11.0-16.0) % Plt Count 191 (160-400) X10*3/uL MPV 9.8 (9.4-12.4) fL Immature Gran % (Auto) 0.3 (0.0-0.4) % Neut % (Auto) 60.5 (45-73) % Lymph % (Auto) 26.8 (20-40) % [place] % (Auto) 7.0 (2-11) % Eos % (Auto) 5.1 H (0-4) % Baso % (Auto) 0.3 (0-2) % Lymph # (Auto) 1.8 (1.2-4.9) X10*3/uL [place] # (Auto) 0.5 (0.1-1.2) X10*3/uL Eos # (Auto) 0.3 (0.0-0.4) X10*3/uL Baso # (Auto) 0.0 (0.0-0.2) X10*3/uL Abs Immat Gran (auto) 0.02 (0.00-0.03) X10*3/uL Absolute Neuts (auto) 4.0 (2.0-8.3) x10*3/uL Absolute Nucleated RBC 0.000 (0.0-0.012) X10*3/uL Nucleated RBC % (auto) 0.0 (0.0-0.2) /100WBC Sodium 143 (135-145) mmol/L Potassium 4.2 (3.3-5.1) mmol/L Chloride 108 (96-108) mmol/L Carbon Dioxide 28 (22-29) mmol/L Anion Gap 11 L (12-20) BUN 8 L (9-16) mg/dL Creatinine 0.82 (0.5-1.4) mg/dL Estim Creat Clear Calc 123.4 Estimated GFR > 60 Random Glucose 105 (60-115) mg/dL Calcium 9.4 D (8.4-10.2) mg/dL Total Bilirubin 0.2 (0.0-1.0) mg/dL Direct Bilirubin < 0.2 (0.0-0.5) mg/dL AST 23 (5-37) U/L ALT 30 (0-40) U/L Alkaline Phosphatase 61 (39-117) U/L Total Protein 7.0 (6.5-8.0) g/dL Albumin 4.0 (3.5-5.0) g/dL Lipase 38 (8-78) U/L External Record Review External record reviewed: Inpatient record Prescription Management I considered prescription management with: Other Discharge Plan Discharge Clinical Impression: Gastritis Qualifiers: Gastritis type: unspecified gastritis Chronicity: chronic Gastritis bleeding: w ithout bleeding Qualified Code(s): K29.50 - Unspecified chronic gastritis without bleeding Patient Disposition: Home, Self-Care Instructions: Gastritis (ED) Additional Instructions: return for worsening symptoms - black or bloody stools - no motrin, ibuprofen, aleve it is okay to take tylenol eat a bland diet and avoid triggers stop taking omeprazole Prescriptions: New pantoprazole 40 mg tablet,delayed release (DR/EC) 40 mg PO DAILY Qty: 30 1RF ondansetron 4 mg tablet,disintegrating 4 mg PO Q8H PRN (Reason: nausea and vomiting) Qty: 20 0RF No Action omeprazole 40 mg capsule,delayed release(DR/EC) 40 mg PO DAILY Qty: 30 0RF famotidine [Pepcid AC Maximum Strength] 20 mg tablet 20 mg PO BID 42 Days Qty: 84 0RF erythromycin 5 mg/gram (0.5 %) ointment 0.5 inch ophthalmic-Left QID 7 Days Qty: 3.5 0RF Referrals: Bharat De Oliveira MD [Physician] - (call to schedule appointment) Print Language: Dutch
[2024-03-13] MEDS: Ondansetron ODT 4 MG TAB.RAPDIS TRANSLINGU (09:58)
[2024-03-13] MEDS: Lidocaine HCl Viscous 2 % 15 ML SOLUTION MUCOUS MEM (09:58)
[2024-03-13] MEDS: Magnesium Hydrox/Alum Hydrox 30 ML ORAL.SUSP PO (09:58)
[2024-03-13 10:08] VITALS: BP 123/76; PULSE 73; RESP 16; O2SAT 100
[2024-03-13 10:10] VITALS: BP 123/76; PULSE 73; RESP 16; TEMP 36.9; O2SAT 100
== END 2024-03-13 10:12 | disposition home or self-care (01) ==
PROVIDERS: Emergency Provider Emergency Medicine; PCP Internal Medicine
DX: K29.50 Unspecified chronic gastritis without bleeding (principal)
CPT/HCPCS: 36415; 80048; 80076; 83690; 85025; 99283; 99284

== ENCOUNTER 2025-02-05 17:44 | Emergency (ER) | payer OTHER, SELFPAY ==
--- NOTE | ~2025-02-05 | CT_ITS ---
CLINICAL HISTORY: rt side Low abd inguinal pain, report of hemturia CT abdomen and pelvis without contrast Comparison: None Findings: No consolidation or effusion. The gallbladder and solid organs are within normal limits. No renal stones. No bowel obstruction, pneumoperitoneum, or pneumatosis. Pelvic contents unremarkable. Normal appendix. No inguinal hernia. No acute fracture. IMPRESSION: No acute findings. No hydronephrosis or nephrolithiasis. No inguinal hernia. This document has been electronically signed by: Alonso Leavitt MD on 02/05/2025 20:34:59
--- NOTE | ~2025-02-05 | US_ITS ---
CLINICAL HISTORY: right testicular pain swelling US Scrotum with Doppler Comparison: None Findings: Right testicle normal echotexture, 4.3 x 2.7 x 2.3 cm, corresponds to a volume of 13.7 ML. Left testicle normal echotexture, 4.3 x 2.2 x 2.7 cm, corresponds to a volume of 13.3 mL. Normal color flow and arterial/venous spectral tracing of both testicles. Normal epididymides. No varicoceles. No hydroceles. IMPRESSION: Normal scrotal ultrasound. No evidence of torsion. This document has been electronically signed by: Alonso Leavitt MD on 02/05/2025 19:33:10
[2025-02-05 17:51] VITALS: BP 116/66; PULSE 73; RESP 19; TEMP 36.6; O2SAT 98; BMI 22.8
--- NOTE | 2025-02-05 17:53 | ED.GENADULT ---
HPI - General Adult General Chief complaint: Urogenital-Male Stated complaint: testicle pain Time Seen by Provider: 02/05/25 18:40 History of Present Illness ED Provider: Poppy SANTIZO narrative: The patient is a 34-year-old male who says that a little over a week ago he lifted a heavy object at work. Since then he has been having a lot of pain in the region of his right groin and testicle. He has continued to go to work. He always has to do a fair amount of heavy lifting at work. He worked today and had a lot of pain and came to the emergency room for evaluation. He says that at 1 point during the last week he thought he saw some blood in his urine. He has not had any fever, sweats, chills. No nausea or vomiting. He says that sometimes he feels the pain is in his right testicle and sometimes he thinks the right testicle is swollen. Other times he feels the pain is more in the space between his scrotum and his anus. And at other times he feels the pain is more in his abdomen in his right lower quadrant. If he does not do any lifting for awhile he feels much better. No fever, sweats, chills. No nausea or vomiting. Related Data Previous Rx's ?Medication ?Instructions ?Recorded omeprazole 40 mg capsule,delayed 40 mg PO DAILY #30 caps 11/25/22 release famotidine 20 mg tablet (Pepcid AC 20 mg PO BID 6 weeks #84 tabs 03/10/23 Maximum Strength) erythromycin 5 mg/gram (0.5 %) eye 0.5 inch ophthalmic-Left QID 7 06/04/23 ointment days #3.5 grams ondansetron 4 mg disintegrating 4 mg PO Q8H PRN nausea and 03/13/24 tablet vomiting #20 tabs pantoprazole 40 mg tablet,delayed 40 mg PO DAILY #30 tabs 03/13/24 release ibuprofen 400 mg tablet 400 mg PO Q6H PRN pain #14 tabs 02/05/25 Allergies Allergy/AdvReac Type Severity Reaction Status Date / Time No Known Allergies Allergy Verified 02/05/25 17:52 Review of Systems Review of Systems: Yes all other systems are reviewed and are negative PMFSH Past Medical History Medical History Gastritis No known health problems Social History Social History Alcohol intake: never Patient Tobacco Use Status: Never used Tobacco Substance Use Type: Marijuana Advance Directives: No Advance Directives Information Provided: No Do you have a plan to hurt others: No Plan Physical Exam ED Vital Signs: Vital Signs - 24 hr 02/05/25 17:51 02/05/25 21:30 Temperature 98 F 98 F Pulse Rate 73 73 Respiratory Rate 19 19 Blood Pressure 116/66 116/66 Pulse Oximetry 98 98 BMI result Body Mass Index 22.8 Const Other: The patient is a slim young man who looks as though he is ordinarily healthy and in good shape. He does not appear obviously acutely ill. HENMT Other: Face is symmetrical. Mucous membranes moist. Eyes General: appearance normal, both eyes and all related structures Neck Neck: Yes full ROM Resp Effort & Inspection: normal respiratory effort Auscultation: clear to auscultation bilaterally Cardio Rate: regular rate Rhythm: regular rhythm Heart sounds: S1 normal heart sound present and S2 normal heart sound present GI Other: The patient has some tenderness and been the palpation of the right inguinal canal. The abdomen seems otherwise flat and soft and not significantly tender. Other: The patient is an uncircumcised male. Scrotal contents were unremarkable to inspection. There was no obvious scrotal swelling. I could not elicit a cremasteric reflex on either side. The left testicle seemed perfectly normal. There may have been some minimal tenderness to the right testicle but this was really quite minimal. No obvious testicular swelling. With invagination of the scrotum with my finger into the right inguinal canal the patient seemed to have a lot of pain and tenderness although I did not appreciate any definite hernial sac. The patient also seemed to have tenderness along the perineal raphe. Back/Spine/Pelvis Other: No definite CVA percussion tenderness on either side. Skin Other: Skin is dry and unremarkable Neuro Other: The patient is awake and alert with a normal mental status. Cranial nerves are grossly intact. He moves his extremities normally and appropriately. Extrem Other: No peripheral edema. Course Course Course Narrative: This is a Rapid Medical Examination (RME) performed by Troy Ferrell PA-C in triage. Full HPI, ROS, assessment and treatment plan per primary provider in the Main ED. 34 yo male here for eval of right testicular pain/swelling x1 week. pain came on gradually. 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 denies acute onset pain while lifting something. states the right testicle is enlarged. no redness. no penile discharge. admits to episode of hematuria 1 wk ago, no dysuria. Plan: labs, UA, CTNG, scrotal us/doppler Medications Administered Discontinued Medications Generic Name Dose Route Start Last Admin Trade Name Walt PRN Reason Stop Dose Admin Acetaminophen 975 mg 02/05/25 21:05 02/05/25 21:25 Acetaminophen 325 Mg Tablet PO 02/05/25 21:06 975 mg ONCE ONE Administration Ibuprofen 600 mg 02/05/25 21:05 02/05/25 21:24 Ibuprofen 600 Mg Tablet PO 02/05/25 21:06 600 mg ONCE ONE Administration Medical Decision Making Medical Decision Making [facility] Narrative: The patient is a very pleasant 34-year-old male who has had pain for over a week that seems to have begun after lifting a heavy object at work. He has been feeling the pain in his right groin and in the region of his right testicle and in his perineal raphe. He also thinks at some point he might have had blood in his urine. At triage scrotal ultrasound has been ordered. This is negative. My suspicion for an acute scrotal problem is very low. I also obtained a CT of the abdomen and pelvis without contrast. This shows no kidney stones and shows no inguinal hernia. The patient's urinalysis and labs are unremarkable. My overall impression is that the patient has pain is probably a muscular pain, probably a strain type injury from an episode of heavy lifting. I spoke to the patient and his about his results and my clinical impression. The patient says that he had not reported this episode to his electronics supervisor at work as a possible job related injury. I have advised him to do so. My hope is that he will report this has a possible work related injury and be allowed to follow up with the [facility]. He is given a work note for the next 2 days. He does not want to miss more work than that. He is given a prescription for ibuprofen. He is advised to try to rest and avoid straining. If for any reason he is unable to follow up with the [facility] he should follow up with Dr. Ruiz. He should return if worse. Lab Data 02/05/25 18:08 02/05/25 18:08 Labs: Lab Results 02/05/25 02/05/25 Range/Units 18:08 20:12 WBC 7.4 (4.8-10.8) X10*3/uL RBC 4.22 L (4.60-5.80) X10*6/uL Hgb 12.9 L (14.0-18.0) g/dl Hct 39.0 L (42.0-52.0) % MCV 92.4 (80.0-98.0) fL MCH 30.6 (27.0-33.0) pg MCHC 33.1 (31.0-36.0) g/dl RDW 12.2 (11.0-16.0) % Plt Count 179 (160-400) X10*3/uL MPV 9.5 (9.4-12.4) fL Immature Gran % (Auto) 0.3 (0.0-0.4) % Neut % (Auto) 56.2 (45-73) % Lymph % (Auto) 33.8 (20-40) % Holt % (Auto) 6.9 (2-11) % Eos % (Auto) 2.7 (0-4) % Baso % (Auto) 0.1 (0-2) % Lymph # (Auto) 2.5 (1.2-4.9) X10*3/uL [place] # (Auto) 0.5 (0.1-1.2) X10*3/uL Eos # (Auto) 0.2 (0.0-0.4) X10*3/uL Baso # (Auto) 0.0 (0.0-0.2) X10*3/uL Abs Immat Gran (auto) 0.02 (0.00-0.03) X10*3/uL Absolute Neuts (auto) 4.2 (2.0-8.3) x10*3/uL Absolute Nucleated RBC 0.000 (0.0-0.012) X10*3/uL Nucleated RBC % (auto) 0.0 (0.0-0.2) /100WBC Sodium 143 (135-145) mmol/L Potassium 3.7 (3.3-5.1) mmol/L Chloride 107 (96-108) mmol/L Carbon Dioxide 29 (22-29) mmol/L Anion Gap 11 L (12-20) BUN 12 (9-16) mg/dL Creatinine 0.76 (0.5-1.4) mg/dL Estim Creat Clear Calc 133.0 Estimated GFR > 60 POC Glucose 82 (60-115) mg/dL Random Glucose 53 L* (60-115) mg/dL Calcium 8.8 D (8.4-10.2) mg/dL Total Bilirubin 0.3 (0.0-1.0) mg/dL AST 31 (5-37) U/L ALT 30 (0-40) U/L Alkaline Phosphatase 56 (39-117) U/L Total Protein 7.4 (6.5-8.0) g/dL Albumin 4.2 (3.5-5.0) g/dL Urine Color Yellow Urine Appearance Clear Urine pH 7.0 (5.0-9.0) Ur Specific [place] 1.020 (1.005-1.025) Urine Protein Negative (Neg-Trace) mg/dL Urine Glucose (UA) Negative (Negative) mg/dL Urine Ketones Negative (Negative) mg/dL Urine Blood Negative (Negative) Urine Nitrite Negative (Negative) Ur Leukocyte Esterase Negative (Negative) Discharge Plan Discharge Clinical Impression: Strain of muscle of right groin region Patient Disposition: Home, Self-Care Additional Instructions: Your testing in the emergency room today seems reassuring. I think that you have experienced some kind of a muscle injury in the region of your groin as a result of lifting a heavy object. I would recommend talking to your electronics supervisor at work and see if you can report this has a work-related injury. If you are able to report this has a work related injury please follow up with the [facility] office. If you are unable to follow up with the [facility] please follow up with Dr. Noble's office. I think resting and avoiding heavy lifting is probably the most important thing to do for letting your body heal from this injury. You has been given a work note for the next 2 days. Please do your best to rest and take it easy and avoid lifting anything heavy or straining yourself in any way. Return to the emergency room if significantly worse. Prescriptions: New ibuprofen 400 mg tablet 400 mg PO Q6H PRN (Reason: pain) Qty: 14 0RF No Action omeprazole 40 mg capsule,delayed release(DR/EC) 40 mg PO DAILY Qty: 30 0RF pantoprazole 40 mg tablet,delayed release (DR/EC) 40 mg PO DAILY Qty: 30 1RF ondansetron 4 mg tablet,disintegrating 4 mg PO Q8H PRN (Reason: nausea and vomiting) Qty: 20 0RF famotidine [Pepcid AC Maximum Strength] 20 mg tablet 20 mg PO BID 42 Days Qty: 84 0RF erythromycin 5 mg/gram (0.5 %) ointment 0.5 inch ophthalmic-Left QID 7 Days Qty: 3.5 0RF Referrals: [facility] [Provider Group] (Right groin strain) Natalia Noble MD [Primary Care Provider] - (right groin strain) Stand Alone Forms: Work/School Release Interventions: ED Discharge Assessment Last Done: 02/05/25 21:30 Discharge Date/Time: 02/05/25 21:31 Print Language: Nepali
[2025-02-05 18:12] LABS: MANUAL DIFF FLAG NO
[2025-02-05 18:15] LABS: Appearance Urine Clear; Color Urine Yellow; Glucose Urine UA Negative (Negative); Leukocyte Esterase Urine Negative (Negative); Nitrite Urine Negative (Negative); Urine Blood Negative (Negative); Urine Ketones Negative (Negative); Urine Protein Negative (Neg-Trace)
[2025-02-05 18:18] LABS: Basophils Percent Auto 0.1 % (0-2); Eosinophils Absolute Auto 0.2 X10*3/uL (0.0-0.4); Eosinophils Percent Auto 2.7 % (0-4); Hemoglobin 12.9 g/dl (14.0-18.0); Imm Gran Abs Auto 0.02 X10*3/uL (0.00-0.03); Imm Gran Pct Auto 0.3 % (0.0-0.4); Lymphocytes Absolute Auto 2.5 X10*3/uL (1.2-4.9); Lymphocytes Percent Auto 33.8 % (20-40); Mean Corpuscular HGB Conc 33.1 g/dl (31.0-36.0); Mean Corpuscular Hemoglobin 30.6 pg (27.0-33.0); Mean Corpuscular Volume 92.4 fL (80.0-98.0); Mean Platelet Volume 9.5 fL (9.4-12.4); Monocytes Absolute Auto 0.5 X10*3/uL (0.1-1.2); Monocytes Percent Auto 6.9 % (2-11); Neutrophils Absolute Auto 4.2 x10*3/uL (2.0-8.3); Neutrophils Percent Auto 56.2 % (45-73); Platelet Count 179 X10*3/uL (160-400); Red Blood Count 4.22 X10*6/uL (4.60-5.80); Red Cell Distribution Width 12.2 % (11.0-16.0); White Blood Count 7.4 X10*3/uL (4.8-10.8)
[2025-02-05 18:49] LABS: Alanine Aminotransferase 30 U/L (0-40); Albumin Level 4.2 g/dL (3.5-5.0); Alkaline Phosphatase 56 U/L (39-117); Anion Gap 11 (12-20); Aspartate Amino Transferase 31 U/L (5-37); Bilirubin Total 0.3 mg/dL (0.0-1.0); Blood Urea Nitrogen 12 mg/dL (9-16); Calcium 8.8 mg/dL (8.4-10.2); Carbon Dioxide 29 mmol/L (22-29); Chloride 107 mmol/L (96-108); Estimated Glomerular Filt Rate > 60; Glucose Random 53 mg/dL (60-115); Potassium 3.7 mmol/L (3.3-5.1); Sodium 143 mmol/L (135-145); Total Protein 7.4 g/dL (6.5-8.0)
--- OUTSIDE RECORDS SUMMARY | 2025-02-05 18:52 | XMS_ITS | Clinical Summary ---
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 Name Role Phone Unavailable Primary Care Provider Unavailabl e Allergies No known active allergies Medications No known medications Active Problems Problem Noted Date Diagnosed Date Dental calculus 06/29/2024 Severe dental caries 05/24/2024 Dental abscess 05/24/2024 Social History Tobacco Use Types Packs/Day Years Used Date Smoking Tobacco: Never Smokeless Tobacco: Never Tobacco Cessation:Counseling Given: Not Answered Alcohol Use Standard Drinks/Week Comments Defer 0 (1 standard drink = 0.6 oz pur e alcohol) Sex and Gender Information Value Date Recorded Sex Assigned at Male 05/23/2024 8:09 AM EDT Legal Sex Male 8:03 AM EDT Gender Identity Male 05/23/2024 8:09 AM EDT Sexual Orientation Choose not to disclose 2023 8:09 AM EDT Last Filed Vital Signs Vital Sign Reading Time Taken Comments Blood Pressure 112/74 06/29/2024 2:56 PM EDT Pulse - - Temperature - - Respiratory Rate - - Oxygen Saturation - - Inhaled Oxygen Concentration - - Weight - - Height - - Body Mass Index - - Plan of Treatment Health Maintenance Due Date Last Done Comments Depression Screening 1991 HIV Screening 1991 SDOH Screening 1991 Alcohol/Substance Use Screening 2003 Family Planning (PISQ) 2006 Hepatitis C Screening 2009 DTaP/Tdap/Td Vaccines (1 - Tdap) 2010 Hepatitis B Vaccines (1 of 3 - 19+ 3-dose series) 2010 COVID-19 Vaccine (2023-2 5 season) 2024 Influenza Vaccine (#1) 2024 Dental Oral Exam 12/31/2024 06/29/2024 Dental Prophylaxis 12/31/2024 06/29/2024 Tobacco Screening 06/29/2025 06/29/2024 Dental X-Ray: Bitewings 06/30/2025 06/29/20 24, 05/23/2024 Dental X-Ray: Full Mouth 06/30/2027 06/29/2024 Zoster Vaccines (1 of 2) 2041 RSV Patients and Patients Aged 60 years or older (1 - 1-dose 75+ series) 2066 HIB Vaccines Aged Out No longer eligi ble based on patient's age to complete this topic HPV Vaccines Aged Out No longer eligi ble based on patient's age to complete this topic Hepatitis A Vaccines Aged Out No long er eligible based on patient's age to complete this topic IPV Vaccines Aged Out No longer eligi ble based on patient's age to complete this topic Meningococcal Vaccine Aged Out No deb jennifer eligible based on patient's age to complete this topic Pneumococcal Vaccine: Pediatrics (0 to 5 Years) and At-Risk Patients (6 to 49) Years) Aged Out No longer eligible b ased on patient's age to complete this topic RSV under 20 months Aged Out No longe r eligible based on patient's age to complete this topic Rotavirus Vaccines Aged Out No longer eligible based on patient's age to complete this topic Procedures Procedure Name Priority Date/Time Associated Diagnosis Comments PROPHYLAXIS - ADULT Routine 06/29/2024 3 :00 PM EDT Dental plaque Dental calculus INTRAORAL - COMPLETE SERIES OF RADIOGRAPHIC IMAGES Routine 06/29/2024 3:00 PM EDT PERIODIC ORAL EVALUATION - ESTABLISHED PATIENT Routine 06/29/2024 3:00 PM EDT from Last 3 Months or Most Recently Relevant to Health Maintenance Insurance DENTAL - [facility] PARTIAL (MEDICAID)
--- NOTE | 2025-02-05 18:57 | PC.NURSE ---
Critical from Lab received on pt for Glucose of 53 Provider Poppy notified, no new orders at this time.
--- NOTE | 2025-02-05 20:14 | PC.NURSE ---
repeat POC s/p PO consumption = 82mg/dL.
[2025-02-05 20:16] LABS: Glucose, Whole Blood 82 mg/dL (60-115)
[2025-02-05] MEDS: Ibuprofen 600 MG TABLET PO (21:24)
[2025-02-05] MEDS: Acetaminophen 325 MG TABLET 975 MG PO (21:25)
[2025-02-05 21:30] VITALS: BP 116/66; PULSE 73; RESP 19; TEMP 36.6; O2SAT 98
[2025-02-06 11:36] LABS: CT PCR NOT DETECTED (Not Detect.); NG PCR NOT DETECTED (Not Detect.)
== END 2025-02-05 21:31 | disposition home or self-care (01) ==
PROVIDERS: Physician Assistant Medical; Emergency Provider Emergency Medicine; PCP Internal Medicine
DX: S39.011A Strain of muscle, fascia and tendon of abdomen, initial encounter (principal); X50.0XXA Overexertion from strenuous movement or load, initial encounter; R10.31 Right lower quadrant pain; N50.811 Right testicular pain; Y93.89 Activity, other specified; Y92.59 Other trade areas as the place of occurrence of the external cause; Y99.0 Civilian activity done for income or pay
CPT/HCPCS: 36415; 74176; 76870; 80053; 81003; 82947; 85025; 87491; 87591; 93975; 99283; 99284

== ENCOUNTER → 2025-02-05 17:52 | Outpatient (BNV) | payer OTHER, SELFPAY | PROVIDERS: Emergency Provider Emergency Medicine; PCP Internal Medicine; Visit Provider Student in an Organized Health Care Education/Training Program | DX: R10.31 Right lower quadrant pain (principal); R31.9 Hematuria, unspecified; N50.811 Right testicular pain; N50.89 Other specified disorders of the male genital organs | CPT/HCPCS: 74176; 93975 ==

== ENCOUNTER 2025-08-27 05:43 | Emergency (ER) | payer OTHER, SELFPAY ==
[2025-08-27 05:47] VITALS: BP 121/63; PULSE 62; RESP 18; TEMP 36.7; O2SAT 98; BMI 22.0
--- OUTSIDE RECORDS SUMMARY | 2025-08-27 06:18 | XMS_ITS | Clinical Summary ---
Author Organization [employer] Address [address] [facility] [address] [place] [address] Care Team Providers Care Capacity Management Specialist Name Role Phone Unavailable Primary Care Provider Unavailabl e Allergies No known active allergies Medications amoxicillin (Amoxil) 500 MG capsule Take 1 capsule (500 mg) by mouth every 8 (eight) hours for 7 days. 21 capsule 08/08/2025 08/15/20 25 acetaminophen (Tylenol) 325 MG tablet Take 2 tablets (650 mg) by mouth every 6 (six) hours if needed for mild pain for up to 10 days. 30 tablet 08/08/2025 08/18/20 25 Active Problems Problem Noted Date Diagnosed Date Dental calculus 06/29/2024 Severe dental caries 05/24/2024 Dental abscess 05/24/2024 Encounters Date Type Department Care Team Description 08/08/2025 8:15 AM EDT Office Visit [facility] [address] [place] [address] Antoinette Perera Dental caries (Primary Dx); Open fracture of tooth, initial encounter from Last 3 Months Social History Tobacco Use Types Packs/Day Years Used Date Smoking Tobacco: Former Cigarettes Smokeless Tobacco: Never Tobacco Cessation:Counseling Given: Not Answered Alcohol Use Standard Drinks/Week Comments Not Currently 0 (1 standard drink = 0.6 oz pur e alcohol) Sex and Gender Information Value Date Recorded Sex Assigned at Male 05/23/2024 8:09 AM EDT Legal Sex Male 8:03 AM EDT Gender Identity Male 05/23/2024 8:09 AM EDT Sexual Orientation Choose not to disclose 2023 8:09 AM EDT Last Filed Vital Signs Vital Sign Reading Time Taken Comments Blood Pressure 110/58 08/08/2025 8:30 AM EDT Pulse 64 08/08/2025 8:30 AM EDT Temperature - - Respiratory Rate - - Oxygen Saturation - - Inhaled Oxygen Concentration - - Weight - - Height - - Body Mass Index - - Plan of Treatment Health Maintenance Due Date Last Done Comments Depression Screening 1991 HIV Screening 1991 SDOH Screening 1991 Disability Screening 1991 Alcohol/Substance Use Screening 2003 Family Planning (PISQ) 2006 HPV Vaccines (1 - Male 3-dos e series) 2006 Hepatitis C Screening 2009 DTaP/Tdap/Td Vaccines (1 - Tdap) 2010 Hepatitis B Vaccines (1 of 3 - 19+ 3-dose series) 2010 Dental Oral Exam 12/31/2024 06/29/2024 Dental Prophylaxis 12/31/2024 06/29/2024 COVID-19 Vaccine (1 - 2023-2 5 season) 2025 Influenza Vaccine (#1) 2025 Tobacco Screening 08/08/2026 08/08/2025 Dental X-Ray: Bitewings 08/09/2026 08/08/20, 06/29/2024, 05/23/2024 Dental X-Ray: Full Mouth 06/30/2027 06/29/2024 [...] patient's age to complete this topic Meningococcal B Vaccine Aged Out No l onger eligible based on patient's age to complete this topic Meningococcal Vaccine Aged Out No deb jennifer eligible based on patient's age to complete this topic Pneumococcal Vaccine: Pediatrics (0 to 5 Years) and At-Risk Patients (6 to 49) Years Aged Out No longer eligible b ased on patient's age to complete this topic RSV under 20 months Aged Out No longe r eligible based on patient's age to complete this topic Rotavirus Vaccines Aged Out No longer eligible based on patient's age to complete this topic Procedures Procedure Name Priority Date/Time Associated Diagnosis Comments BITEWING - SINGLE RADIOGRAPHIC IMAGE Routine 08/08/2025 8:15 AM EDT 4 INTRAORAL - PERIAPICAL FIRST RADIOGRAPHIC IMAGE Routine 08/08/2025 8:15 AM EDT LIMITED ORAL EVALUATION - PROBLEM FOCUSED Routine 08/08/2025 8:15 AM EDT 4 EXTRACTION, ERUPTED TOOTH REQ REMOVAL OF BONE AND/OR SECTIONING OF TOOTH Routine 08/08/2025 8:15 AM EDT PROPHYLAXIS - ADULT Routine 06/29/2024 3 :00 PM EDT Dental plaque Dental calculus INTRAORAL - COMPLETE SERIES OF RADIOGRAPHIC IMAGES Routine 06/29/2024 3:00 PM EDT PERIODIC ORAL EVALUATION - ESTABLISHED PATIENT Routine 06/29/2024 3:00 PM EDT from Last 3 Months or Most Recently Relevant to Health Maintenance Insurance DENTAL - [facility] PARTIAL (MEDICAID)
--- NOTE | 2025-08-27 06:28 | ED_ITS ---
HPI - Allergic Reaction General Chief complaint: Allergic Reaction Stated complaint: swollen lips, allergic reaction Time Seen by Provider: 08/27/25 06:17 Source: patient Mode of arrival: ambulatory Limitations: no limitations History of Present Illness ED Provider: DR. Pulido HPI narrative: 34-year-old male otherwise healthy came in for evaluation of upper lip swelling, patient declined any change in his daily routine, no new medication, no new foods no new exposure, patient remember holding a credit card in his mouth between his 2 lips a day before this happen, otherwise no rash, no itching, no change of voice, no difficulty swallowing, no difficulty speaking, no difficulty breathing. Related Data Previous Rx's ?Medication ?Instructions ?Recorded omeprazole 40 mg capsule,delayed 40 mg PO DAILY #30 ca ps 11/25/22 release famotidine 20 mg tablet (Pepcid AC 20 mg PO BID 6 week s #84 tabs 03/10/23 Maximum Strength) erythromycin 5 mg/gram (0.5 %) eye 0.5 inch ophthalmic -Left QID 7 06/04/23 ointment days #3.5 grams ondansetron 4 mg disintegrating 4 mg PO Q8H PRN nausea and 03/13/24 tablet vomiting #20 tabs pantoprazole 40 mg tablet,delayed 40 mg PO DAILY #30 t abs 03/13/24 release ibuprofen 400 mg tablet 400 mg PO Q6H PRN pain #14 t abs 02/05/25 diphenhydramine HCl 25 mg capsule 25 mg PO TID PRN all ergic reaction 08/27/25 (Allergy Relief (diphenhydramine)) #14 caps Allergies Allergy/AdvReac Type Severity Reaction Status Date / Time No Known Allergies Allergy Verified 08/27/25 05:49 Review of Systems Review of Systems: All other systems are reviewed and are negative Constitutional: Reports as per HPI and Reports no additional constitutional complaints Eyes: Reports as per HPI and Reports no additional eye complaints Reports system reviewed and no additional complaints, except as documented Cardiovascular: Reports as per HPI and Reports no additional cardiovascular complaints Respiratory: Reports as per HPI and Reports no additional respiratory complaints Gastrointestinal: Reports as per HPI and Reports no additional gastrointestinal complaints Genitourinary: Reports no additional female genitourinary complaints Musculoskeletal: Reports no additional musculoskeletal complaints Skin/Breast: Reports system reviewed and no additional complaints, except as docu Psychiatric: Reports no additional psychiatric complaints Endocrine: Reports no additional endocrine complaints Hematologic/Lymphatic: Reports no additional hematologic/lymphatic complaints Allergic/Immunologic: Reports no additional allergic/immunologic complaints Reports system reviewed and no additional complaints, except as documented and Reports Abnormal speech present [facility] Past Medical History Medical History Gastritis No known health problems Social History Social History Alcohol intake: never Patient Tobacco Use Status: Never used Tobacco Substance Use Type: Marijuana Advance Directives: No Advance Directives Information Provided: No Physical Exam ED Vital Signs: Vital Signs - 24 hr 08/27/25 05:47 Temperature 98.0 F Pulse Rate 62 Respiratory Rate 18 Blood Pressure 121/63 Pulse Oximetry 98 Oxygen Delivery Method Room Air BMI result Body Mass Index 22.0 Vital signs have been reviewed and appear to be correct. Blood pressure elevated. Heart rate normal. Respiratory rate normal. Temperature normal. Oxygen saturation normal. Appearance: Alert. Oriented X3. No acute distress. Head: Normal external exam. Normocephalic. Atraumatic. No Demarco signs noted. No raccoon eyes noted Eyes: PERRLA. EOMI. Conjunctiva and sclera normal. Eyelids normal. ENT: TM's Normal. Pharynx normal. Uvula midline. Moist mucous membranes. No trismus noted. No drooling noted. No muffled voice noted. Neck: Normal inspection. Neck supple. FROM. No adenopathy. Thyroid Normal. No meningeal signs. No neck mass noted. CVS: Normal heart rate and rhythm. Heart sound normal. No murmurs noted. Pulses normal throughout. Respiratory: No respiratory distress. Painless inspiration. Breath sounds normal. No wheezes/rales/rhonchi noted. Chest nontender. No accessory muscle usage noted or decreased air movement noted. Abdomen: Soft and nontender. Bowel sounds normal in all 4 quadrants. No distention noted. No organomegaly noted. No visible injury noted. Back: No CVA tenderness. Full range of motion noted. Skin: Skin warm and dry. Normal skin color. Normal skin turgor. No rashes/lesions/lacerations noted. Extremities: No lower extremity edema. Extremities exhibit normal range of motion. Extremities nontender. Neuro: Oriented X 3. Cranial nerve exam: II-XII are grossly intact No motor deficit. No sensory deficit. Reflexes normal. Course Reevaluation(s) Reevaluation #1: Upper lip angioedema for unclear etiology patient was instructed to take Benadryl every 6 hours if needed for pain Time: 06:34 Medical Decision Making Differential Diagnosis Differential Diagnoses: The differential diagnosis associated with the presentation includes ( angioedema, allergic reaction.) Admission/Observation Consideration of admission/observation: Escalation of care including admission/observation considered Discharge Plan Discharge Clinical Impression: Angioedema Patient Disposition: Home, Self-Care Instructions: Angioedema (ED) Prescriptions: New diphenhydramine HCl [Allergy Relief(diphenhydramin)] 25 mg capsule 25 mg PO TID PRN (Reason: allergic reaction) Qty: 14 0RF No Action omeprazole 40 mg capsule,delayed release(DR/EC) 40 mg PO DAILY Qty: 30 0RF pantoprazole 40 mg tablet,delayed release (DR/EC) 40 mg PO DAILY Qty: 30 1RF ondansetron 4 mg tablet,disintegrating 4 mg PO Q8H PRN (Reason: nausea and vomiting) Qty: 20 0RF famotidine [Pepcid AC Maximum Strength] 20 mg tablet 20 mg PO BID 42 Days Qty: 84 0RF erythromycin 5 mg/gram (0.5 %) ointment 0.5 inch ophthalmic-Left QID 7 Days Qty: 3.5 0RF ibuprofen 400 mg tablet 400 mg PO Q6H PRN (Reason: pain) Qty: 14 0RF Referrals: Natalia Noble MD [Primary Care Provider, Internal Medicine] Stand Alone Forms: Work/School Release Print Language: Portuguese
[2025-08-27 06:45] VITALS: BP 127/76; PULSE 76; RESP 16; TEMP 36.8; O2SAT 99
== END 2025-08-27 06:46 | disposition home or self-care (01) ==
PROVIDERS: Emergency Provider Emergency Medicine; PCP Internal Medicine
DX: T78.3XXA Angioneurotic edema, initial encounter (principal)
CPT/HCPCS: 99283; 99284